=== PATIENT | female | born 1985 | race Caucasian/White ===

== ENCOUNTER 2020-06-23 11:07 | Outpatient (CLI) | payer MEDICARE, MEDICAID, SELFPAY ==
[2020-06-23 11:34] LABS: Basophils Absolute Auto 0.1 K/mm3 (0.0-0.1); Basophils Percent Auto 0.7 % (0.2-1.2); Eosinophils Absolute Auto 0.2 K/mm3 (0-0.3); Eosinophils Percent Auto 2.9 % (0-4.4); Hematocrit 42.2 % (37.0-47.0); Immature Granulocyte Absolute 0.02 K/mm3 (0.00-0.031); Immature Granulocyte Percent A 0.3 % (0-0.5); Lymphocytes Absolute Auto 1.24 K/mm3 (0.9-3.2); Lymphocytes Percent Auto 16.5 % (18.3-44.2); Mean Corpuscular HGB Conc 30.8 g/dl (32-36); Mean Corpuscular Hemoglobin 26.3 pg (26-34); Mean Corpuscular Volume 85.4 fl (80-100); Mean Platelet Volume 10.3 fl (7.4-10.4); Monocytes Absolute Auto 0.2 K/mm3 (0.1-0.6); Monocytes Percent Auto 3.2 % (2.6-8.5); Neutrophils Absolute Auto 5.7 K/mm3 (1.3-6.7); Neutrophils Percent Auto 76.4 % (45.5-73.1); Platelet Count Result 299 k/mm3 (150-375); Red Blood Count 4.94 M/mm3 (4.2-5.4); Red Cell Distribution Width 14.6 % (11.5-14.5); White Blood Count 7.5 K/mm3 (4.5-10.0)
[2020-06-23 16:32] LABS: Alanine Aminotransferase 26 U/L (4-35); Albumin Level 4.1 g/dL (3.5-5.1); Alkaline Phosphatase 90 U/L (38-126); Anion Gap 7 mmol/L (8-16); Aspartate Amino Transferase 24 U/L (14-36); Bilirubin,Total 0.5 mg/dL (0.2-1.3); Blood Urea Nitrogen 15 mg/dL (7-17); Calcium 9.5 mg/dL (8.4-10.2); Carbon Dioxide 35 mmol/L (22-30); Chloride 98 mmol/L (98-107); Cholesterol 209 mg/dL (0-200); Estimated Glomerular Filt Rate > 60; Glucose 94 mg/dL (65-105); HDL Direct 70 mg/dL; Potassium 4.9 mmol/L (3.4-5.0); Sodium 140 mmol/L (137-145); Triglycerides 96 mg/dL (<150)
[2020-06-23 16:35] LABS: Iron 42 ug/dL (37-170)
[2020-06-23 16:43] LABS: LDL Cholesterol Direct 128 mg/dL
[2020-06-23 16:47] LABS: Percent Iron Saturation 12 % (20-50)
[2020-06-23 16:48] LABS: Vitamin D 25 Hydroxy 16.2 ng/mL
[2020-06-23 16:57] LABS: Hemoglobin A1C 5.2 % (<5.7)
[2020-06-23 17:48] LABS: Folic Acid 6.9 ng/mL (2.76->20)
== END 2020-06-23 11:08 | disposition home or self-care (01) ==
LOC: ANHLAB 11:09
PROVIDERS: PCP Family Medicine; Visit Provider Internal Medicine Hematology & Oncology
DX: D50.9 Iron deficiency anemia, unspecified (principal); R63.5 Abnormal weight gain; R73.9 Hyperglycemia, unspecified; E55.9 Vitamin D deficiency, unspecified; Z79.899 Other long term (current) drug therapy; Z13.220 Encounter for screening for lipoid disorders; Z13.1 Encounter for screening for diabetes mellitus
CPT/HCPCS: 36415; 80053; 80061; 82306; 82607; 82728; 82746; 83036; 83540; 83550; 84443; 85025

== ENCOUNTER 2021-04-06 16:44 | Outpatient (CLI) | payer MEDICARE, MEDICAID, SELFPAY ==
--- NOTE | ~2021-04-06 | CT_ITS ---
EXAMINATION: CT lumbar spine wo con DATE: 04/06/2021 17:51 INDICATION: Spina bifida. Left leg pain. TECHNIQUE: Computed tomography (CT) of the lumbar spine was performed without intravenous contrast. A utomated exposure control and iterative reconstruction technique were employed. The dose-length produ ct was 1053.12 mGy-cm. COMPARISON: CT lumbar spine 08/01/2018 FINDINGS: There is a 2 mm stone in left kidney. Partially visualized is a ventriculoperitoneal shunt. There is 9 degrees dextrocurvature of thoracolumbar spine. There is hyperlordosis of lumbar spine. T here is dysraphism from L3 to L5. There is continuity of the thecal sac with a skin defect in this ar ea. There are dystrophic calcifications around the thecal sac in this area. Osseous central spinal ca nal is developmentally small from T11 to L3. There is ossification of posterior longitudinal ligament at T12 and L1. There is mild chronic anterior wedging of T11 and T12 vertebral bodies. There is mode rately decreased disc height at T11-T12 with endplate remodeling. The following disc levels are speci fically discussed: L1-L2: The disc does not extend beyond the endplate margins. There is moderate right and mild left fa cet joint osteoarthritis. There is moderate right and mild left neural foraminal stenosis. There is m ild central canal stenosis. L2-L3: The disc does not extend beyond the endplate margin. There is severe bilateral facet joint ost eoarthritis. There is moderate right and mild left neural foraminal stenosis. There is mild central c anal stenosis. L3-L4: The disc is bulging. There is severe bilateral facet joint osteoarthritis. There is moderate b ilateral neural foraminal stenosis. There is mild central canal stenosis with posterior decompression . L4-L5: The disc is bulging. There is severe bilateral facet joint osteoarthritis. There is moderate b ilateral neural foraminal stenosis. There is no central canal stenosis. L5-S1: The disc does not extend beyond the endplate margin. There is no facet joint hypertrophy. Ther e is no neural foraminal stenosis. There is no central canal stenosis. IMPRESSION: 1. 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 2. Moderate lumbar spondylosis, stable from 08/01/18. Reviewed, dictated and finalized at location A.
== END 2021-04-06 16:45 | disposition home or self-care (01) ==
LOC: ANHIMG 16:48
PROVIDERS: PCP Family Medicine; Visit Provider Family Medicine
DX: Q05.9 Spina bifida, unspecified (principal); M47.896 Other spondylosis, lumbar region
CPT/HCPCS: 72131

== ENCOUNTER 2021-11-04 10:32 | Outpatient (CLI) | payer MEDICARE, MEDICAID, SELFPAY ==
--- NOTE | ~2021-11-04 | CT_ITS ---
EXAMINATION: CT abdomen pelvis wo con EXAM DATE: 11/04/2021 11:21 INDICATION: Abdominal pain. Dark urine for one month TECHNIQUE: Spiral CT of the abdomen and pelvis was performed without contrast. Axial, coronal and s agittal images of the abdomen and pelvis were reviewed. The dose-length product (DLP) for this [facility] was 1084.61 mGy-cm. The exposure was tailored according to patient size (auto mA exposure con trol), and iterative reconstruction (ASIR) was used as additional dose reduction technique. There is no prior study for comparison. FINDINGS: There appears to be approximately 30 cm length of catheter or tubing in the pelvis, discont inuous with what appears to be the lower part of a ventriculoperitoneal shunt with its tip below the left hemidiaphragm. The liver, spleen, adrenal glands and pancreas are unremarkable. Gallbladder not identified, patient likely has had cholecystectomy. Several punctate bilateral calyceal stones in each kidney. No urete ral stones or obstructive hydrocephalus. Probable bilateral renal small centrally located cysts. The uterus is unremarkable. The bladder is unremarkable. There is no retroperitoneal or pelvic lymphad enopathy. There are no findings to suggest appendicitis. There is a large gastroesophageal hiatal hernia. Karina cent multisegmental right lower lobe atelectasis. There is moderate amount of colonic stool. No fr ee intraperitoneal gas. The heart is normal in size. There are no pericardial or pleural effusions . There are no osteoblastic or osteolytic lesions identified. IMPRESSION: 1. Retained catheter fragment the pelvis discontinuous with the other portion of a ventriculoperiton eal shunt. 2. Punctate bilateral nephrolithiasis. No hydronephrosis. 3. Large gastroesophageal hiatal hernia. 4. Moderate colonic stool. Reviewed, dictated and finalized at location B. SOLUTION ARCHITECT IMPRESSION: 1. Retained catheter fragment the pelvis discontinuous with the other portion of a ventriculoperitoneal shunt. 2. Punctate bilateral nephrolithiasis. No hydronephrosis. 3. Large gastroesophageal hiatal hernia. 4. Moderate colonic stool.
== END 2021-11-04 10:33 | disposition home or self-care (01) ==
LOC: ANHIMG 10:34
PROVIDERS: PCP Family Medicine; Visit Provider Family Medicine
DX: R10.9 Unspecified abdominal pain (principal); N20.0 Calculus of kidney; K44.9 Diaphragmatic hernia without obstruction or gangrene
CPT/HCPCS: 74176; 96372; J3420

== ENCOUNTER 2021-12-28 14:33 | Outpatient (CLI) | payer MEDICARE, MEDICAID, SELFPAY ==
[2021-12-28 15:36] LABS: Cholesterol 199 mg/dL (0-200); HDL Direct 56 mg/dL; Triglycerides 104 mg/dL (<150)
[2021-12-28 15:39] LABS: Hemoglobin A1C 4.9 % (<5.7)
[2021-12-28 15:47] LABS: LDL Cholesterol Direct 95 mg/dL
[2021-12-28 17:21] LABS: Vitamin D 25 Hydroxy 25.7 ng/mL
== END 2021-12-28 14:34 | disposition home or self-care (01) ==
LOC: ANHLAB 14:35
PROVIDERS: PCP Family Medicine; Visit Provider Internal Medicine Hematology & Oncology
DX: E55.9 Vitamin D deficiency, unspecified (principal); Z13.228 Encounter for screening for other metabolic disorders; Z13.220 Encounter for screening for lipoid disorders; Z13.1 Encounter for screening for diabetes mellitus
CPT/HCPCS: 36415; 80061; 82306; 83036; 84443

== ENCOUNTER 2023-05-17 11:34 | Outpatient (CLI) | payer MEDICARE, MEDICAID, SELFPAY ==
[2023-05-17 12:20] LABS: Basophils Percent Auto 0.4 % (0.2-1.2); Eosinophils Absolute Auto 0.2 K/mm3 (0-0.3); Hematocrit 38.5 % (37.0-47.0); Hemoglobin 12.3 g/dL (12.0-15.0); Immature Granulocyte Absolute 0.03 K/mm3 (0.00-0.031); Immature Granulocyte Percent A 0.3 % (0-0.5); Lymphocytes Absolute Auto 1.35 K/mm3 (0.9-3.2); Lymphocytes Percent Auto 15.2 % (18.3-44.2); Mean Corpuscular HGB Conc 31.9 g/dl (32-36); Mean Corpuscular Hemoglobin 27.7 pg (26-34); Mean Corpuscular Volume 86.7 fl (80-100); Mean Platelet Volume 9.9 fl (7.4-10.4); Monocytes Absolute Auto 0.4 K/mm3 (0.1-0.6); Monocytes Percent Auto 4.4 % (2.6-8.5); Neutrophils Absolute Auto 6.9 K/mm3 (1.3-6.7); Neutrophils Percent Auto 77.7 % (45.5-73.1); Platelet Count Result 305 k/mm3 (150-375); Red Blood Count 4.44 M/mm3 (4.2-5.4); Red Cell Distribution Width 12.7 % (11.5-14.5); White Blood Count 8.9 K/mm3 (4.5-10.0)
[2023-05-17 16:59] LABS: LDL Cholesterol Direct 104 mg/dL
[2023-05-17 17:10] LABS: Alanine Aminotransferase 40 U/L (6-35); Alkaline Phosphatase 101 U/L (38-126); Anion Gap 8 mmol/L (8-16); Aspartate Amino Transferase 36 U/L (14-36); Bilirubin,Total 0.6 mg/dL (0.2-1.3); Blood Urea Nitrogen 10 mg/dL (7-17); Carbon Dioxide 30 mmol/L (22-30); Chloride 99 mmol/L (98-107); Cholesterol 167 mg/dL (0-200); Estimated Glomerular Filt Rate > 60; Glucose 95 mg/dL (65-110); HDL Direct 41 mg/dL; Potassium 3.8 mmol/L (3.4-5.0); Sodium 137 mmol/L (137-145); Triglycerides 60 mg/dL (<150)
[2023-05-17 17:18] LABS: Thyroid Stimulating Hormone 0.897 uIU/mL (0.465-4.680)
[2023-05-17 17:22] LABS: Vitamin D 25 Hydroxy < 12.8 ng/mL
== END 2023-05-17 11:35 | disposition home or self-care (01) ==
LOC: ANHLAB 11:37
PROVIDERS: PCP Family Medicine; Visit Provider Internal Medicine Hematology & Oncology
DX: E55.9 Vitamin D deficiency, unspecified (principal); Z13.220 Encounter for screening for lipoid disorders; Z13.1 Encounter for screening for diabetes mellitus; Z79.899 Other long term (current) drug therapy
CPT/HCPCS: 36415; 80048; 80061; 80076; 82306; 84443; 85025

== ENCOUNTER 2023-08-23 08:27 | Emergency (ER) | payer MEDICARE, MEDICAID, SELFPAY ==
--- NOTE | ~2023-08-23 | XR_ITS ---
EXAMINATION: XR chest 2V 08/23/2023 09:09 INDICATION: Midline chest pain. Reflux. PROCEDURE: 2 view chest COMPARISON: 02/16/2009 FINDINGS: The lungs are clear. There is a large hiatal hernia. There is accentuated thoracic kyphosis . There is a right-sided thoracic catheter, likely ventriculoperitoneal shunt. The cardiomediastinal silhouette is within normal limits. There are no pleural effusions. There is no pneumothorax suspec david. IMPRESSION: 1: NO ACUTE CARDIOPULMONARY DISEASE. 2: Large hiatal hernia. Reviewed, dictated and finalized at location L. 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
--- NOTE | 2023-08-23 08:30 | ECG_ITS ---
Measurements Intervals [place] Rate: 114 P: 36 TX: 163 QRS: 44 QRSD: 79 T: 38 QT: 311 QTc: 429 Interpretive Statements SINUS TACHYCARDIA BASELINE ARTIFACT- I, II, AVR ABNORMAL ECG NO PREVIOUS ECG AVAILABLE FOR COMPARISON Electronically Signed On 08-23-2023 9:01:47 FLOOR CARE TECHNICIAN by Spencer Suarez D.O.
[2023-08-23 08:32] VITALS: BP 141/83; PULSE 114; RESP 18; TEMP 36.2; O2SAT 98
[2023-08-23 08:49] LABS: Basophils Absolute Auto 0.1 K/mm3 (0.0-0.1); Basophils Percent Auto 0.6 % (0.2-1.2); Eosinophils Percent Auto 0.3 % (0-4.4); Hematocrit 39.2 % (37.0-47.0); Hemoglobin 11.6 g/dL (12.0-15.0); Immature Granulocyte Absolute 0.05 K/mm3 (0.00-0.031); Immature Granulocyte Percent A 0.4 % (0-0.5); Lymphocytes Absolute Auto 1.04 K/mm3 (0.9-3.2); Lymphocytes Percent Auto 8.9 % (18.3-44.2); Mean Corpuscular HGB Conc 29.6 g/dl (32-36); Mean Platelet Volume 9.3 fl (7.4-10.4); Monocytes Absolute Auto 0.6 K/mm3 (0.1-0.6); Monocytes Percent Auto 4.7 % (2.6-8.5); Neutrophils Absolute Auto 9.9 K/mm3 (1.3-6.7); Neutrophils Percent Auto 85.1 % (45.5-73.1); Platelet Count Result 432 k/mm3 (150-375); Red Blood Count 4.84 M/mm3 (4.2-5.4); Red Cell Distribution Width 15.2 % (11.5-14.5); White Blood Count 11.6 K/mm3 (4.5-10.0)
[2023-08-23 09:02] LABS: Alanine Aminotransferase 21 U/L (6-35); Albumin Level 3.7 g/dL (3.5-5.1); Alkaline Phosphatase 98 U/L (38-126); Anion Gap 7 mmol/L (8-16); Aspartate Amino Transferase 21 U/L (14-36); Bilirubin,Total 0.6 mg/dL (0.2-1.3); Blood Urea Nitrogen 15 mg/dL (7-17); Carbon Dioxide 29 mmol/L (22-30); Chloride 102 mmol/L (98-107); Estimated Glomerular Filt Rate > 60; Glucose 158 mg/dL (65-110); Lipase 78 U/L (23-300); Lipase 80 U/L (23-300); Potassium 3.5 mmol/L (3.4-5.0); Sodium 138 mmol/L (137-145)
[2023-08-23 09:07] LABS: INR 1.1; Prothrombin Time 14.4 Seconds (11.1-14.7)
[2023-08-23 09:08] LABS: Partial Thromboplastin Time 40.8 SECONDS (22.3-36.8)
[2023-08-23 09:13] LABS: Troponin I < 0.012 ng/mL (0.000-0.034)
[2023-08-23 11:05] VITALS: BP 124/75; PULSE 99; RESP 15; O2SAT 100
[2023-08-23] MEDS: BELLADONNA ALK/PHENOB ELIX 10 ML, MAG HYDROX/ALUMINUM HYD/SIMETH 30 ML, LIDOCAINE HCL 2... PO (11:31)
[2023-08-23 11:46] LABS: Troponin I < 0.012 ng/mL (0.000-0.034)
[2023-08-23 12:00] VITALS: BP 124/75; PULSE 96; RESP 16; O2SAT 100
--- NOTE | 2023-08-23 12:24 | ED.CHESTPAIN ---
HPI - Chest Pain General Chief Complaint: Chest Pain Stated Complaint: gerd Time Seen by Provider: 08/23/23 10:32 History of Present Illness HPI narrative: 37-year-old female with history of spina bifida present in the emergency department for evaluation of increased epigastric pain. Patient reports symptoms have been worsening over the last few days. Patient states symptoms worsened when she lays down at night. Patient does take pantoprazole daily. Patient does not have a GI physician and has not recently been scoped. Related Data Home Medications Medication Instructions Recorded Confirmed pantoprazole 40 mg tablet,delayed 40 mg PO QPM 07/11/19 08/10/23 release mirabegron 50 mg tablet,extended 50 mg PO DAILY 03/19/20 08/10/23 release 24 hr (Myrbetriq) ergocalciferol (vitamin D2) 25,000 50,000 unit PO WEEKLY 06/15/23 08/10/23 unit capsule Allergies Allergy/AdvReac Type Severity Reaction Status Date / Time amoxicillin Allergy Mild Rash Verified 08/10/23 10:43 latex Allergy Unknown Swelling Verified 08/10/23 10:43 Review of Systems Review of Systems: All systems reviewed & are unremarkable except as noted in HPI and below PMFSH Family History Family History (Updated 05/23/14 @ 07:13 by DOCTOR UNKNOWN) Mother Depression Family history of multiple sclerosis Other Family history of malignant neoplasm Social History Social History Smoking status: Never smoker Alcohol intake: current Exam Narrative: APPEARANCE: Well appearing, no pain, no distress, well-nourished. HEAD: normocephalic, atraumatic. EYES: PERRLA/EOMI, conjunctivae clear. NOSE: Normal no drainage EARS:TMS clear with good light reflex. THROAT: Pharynx clear, no exudate. NECK: Supple. No adenopathy, no masses. RESPIRATORY: Airway patent, respirations nonlabored. Clear to auscultation bilaterally, no rales, rhonchi, wheezing. CARDIOVASCULAR: Regular rate and rhythm without murmurs rubs or gallops. ABDOMINAL: Epigastric tenderness to palpation MUSCULOSKELETAL: Moves all extremities. Strength/ROM intact, No edema, No calf tenderness. NEURO: Alert. Cranial nerves II through XII intact. Good gait. Good coordination SKIN: Warm, dry. Normal Color PSYCHIATRIC: Normal affect/mood. Course Course Emergency Course: 29-year-old female with history of spina bifida and gastric reflux presenting ED for evaluation of worsening epigastric pain. Patient reports that her symptoms were improved with the GI cocktail. Patient was updated on diet and behavior modification along with the importance of follow-up with GI. Patient was also advised to continue taking her pantoprazole but also to add Maalox. All questions concerns were addressed and patient was well-appearing at time of discharge. Vital Signs Vital signs: Vital Signs Temperature 97.1 F L 08/23/23 08:32 Pulse Rate 114 H 08/23/23 08:32 Respiratory Rate 18 08/23/23 08:32 Blood Pressure 141/83 H 08/23/23 08:32 Pulse Oximetry 98 08/23/23 08:32 Oxygen Delivery Room Air 08/23/23 08:32 Temperature 97.8 F 08/23/23 12:32 Pulse Rate 96 08/23/23 12:00 Respiratory Rate 16 08/23/23 12:00 Blood Pressure 124/75 08/23/23 12:00 Pulse Oximetry 100 08/23/23 12:00 Oxygen Delivery Room Air 08/23/23 08:32 MDM - Chest Pain Lab Data 08/23/23 08:42 08/23/23 08:42 Labs: Lab Results 08/23/23 08/23/23 08/23/23 Range/Units 08:42 08:42 11:14 WBC 11.6 H (4.5-10.0) K/mm3 RBC 4.84 (4.2-5.4) M/mm3 Hgb 11.6 L (12.0-15.0) g/dL Hct 39.2 (37.0-47.0) % MCV 81.0 (80-100) fl MCH 24.0 L (26-34) pg MCHC 29.6 L (32-36) g/dl RDW 15.2 H (11.5-14.5) % Plt Count 432 H (150-375) k/mm3 MPV 9.3 (7.4-10.4) fl Immature Gran % (Auto) 0.4 (0-0.5) % Neut % (Auto) 85.1 H (45.5-73.1) % Lymph % (Auto) 8.9 L (18.3-44.2) % [place] % (Auto) 4.7 (2.6-8.5) % Eos % (Auto) 0.
[2023-08-23 12:32] VITALS: TEMP 36.6
== END 2023-08-23 12:33 | disposition home or self-care (01) ==
PROVIDERS: Emergency Provider Emergency Medicine; PCP Family Medicine
DX: K29.70 Gastritis, unspecified, without bleeding (principal)
CPT/HCPCS: 36415; 71046; 80053; 83690; 84484; 85025; 85610; 85730; 93005; 99284; A9270

== ENCOUNTER 2023-09-14 03:42 | Day surgery (SDC) | payer MEDICARE, MEDICAID, SELFPAY ==
[2023-08-31 10:46] VITALS: BMI 26.6
--- NOTE | 2023-09-12 08:50 | SUR.PREOP ---
Patient called regarding upcoming procedure. Reviewed preop instructions, appointment times, and procedure prep.
--- NOTE | 2023-09-12 13:48 | PM.HPGS ---
History of Present Illness History of Present Illness Consent: Risks, benefits, and alternatives have been discussed and questions answered. Patient agrees to proceed with procedure. Chief complaint: GERD Narrative: Karely Causey is a 38 year old female who was referred for investigation of reflux and a large hiatal hernia. She was in the emergency room complaining of chest pain but she was found to have a large hiatal hernia on imaging. She had a hemoglobin of 11.6. MCV is 81. Her last colonoscopy was 6 years ago revealed internal Hemorrhoids. Review of Systems Review of Systems: All systems reviewed & are unremarkable except as noted in HPI and below PMFSH Past Medical History Medical History Anxiety Depression PAYAL (obstructive sleep apnea) Spina bifida Surgical History Surgical History History of cholecystectomy Family History Family History Mother Depression Family history of multiple sclerosis Other Family history of malignant neoplasm Social History Social History Smoking status: Never smoker Alcohol intake: current Substance use type: does not use Living arrangements: with family Spiritual care concerns: No Meds Home Medications and Allergies Home Medications Medication Instructions Recorded Confirmed Type pantoprazole 40 mg tablet,delayed 40 mg PO QPM 07/11/19 08/31/23 History release mirabegron 50 mg tablet,extended 50 mg PO DAILY 03/19/20 08/31/23 History release 24 hr (Myrbetriq) ergocalciferol (vitamin D2) 25,000 50,000 unit PO WEEKLY 06/15/23 08/31/23 History unit capsule Allergies Allergy/AdvReac Type Severity Reaction Status Date / Time amoxicillin Allergy Mild Rash Verified 08/10/23 10:43 latex Allergy Unknown Swelling Verified 08/10/23 10:43 Exam Const: General: alert Orientation/consciousness: patient oriented x3 Resp: Auscultation: clear to auscultation bilaterally Cardio: Rhythm: regular rhythm GI: GI Palp: Yes Soft to palpation and No Tenderness to palpation present (GI) Neuro: General: patient oriented x3 Assessment and Plan Assessment and plan (1) Hiatal hernia: Code(s): K44.9 - Diaphragmatic hernia without obstruction or gangrene Status: Acute Assessment and Plan: EGD with possible biopsy or dilatation or cautery.
[2023-09-14 13:21] VITALS: BP 112/75; PULSE 111; RESP 20; TEMP 36.6; O2SAT 98; BMI 27.1
--- NOTE | 2023-09-14 13:30 | P.PNAN_ITS ---
Anes - Initial Pre Proc Eval Procedure: Operation Date: 09/14/23 14:30 Proposed Procedures p Esophagogastroduodenoscopy - Pancho Israel MD Date/Time: 09/14/23 13:30 Surgeon: Pancho Israel MD Pre Op Diagnosis: GERD Patient Data Age: 38 Gender: F Height: 1.5 m Weight: 60 kg Allergies Allergy/AdvReac Type Severity Reaction Status Date / Time amoxicillin Allergy Mild Rash Verified 08/10/23 10:43 latex Allergy Unknown Swelling Verified 08/10/23 10:43 Home Medications Medication Instructions Recorded Confirmed Type pantoprazole 40 mg tablet,delayed 40 mg PO QPM 07/11/19 08/31/23 History release mirabegron 50 mg tablet,extended 50 mg PO DAILY 03/19/20 08/31/23 History release 24 hr (Myrbetriq) ergocalciferol (vitamin D2) 25,000 50,000 unit PO WEEKLY 06/15/23 08/31/23 History unit capsule Patient hx anesthesia problems: none Family hx anesthesia problems: none Results Review: All pre-operative results and documents have been reviewed as part of the pre- operative evaluation. [facility] Past Medical History Medical History (Updated 09/14/23 @ 13:31 by Lucas Corona DO) Anxiety Depression PAYAL (obstructive sleep apnea) Spina bifida Surgical History Surgical History (Updated 09/14/23 @ 13:31 by Lucas Corona DO) History of cholecystectomy Family History Family History Mother Depression Family history of multiple sclerosis Other Family history of malignant neoplasm Social History Social History Smoking status: Never smoker Alcohol intake: current Substance use type: does not use Living arrangements: with family Spiritual care concerns: No Anes - Eval Final PreProcedure Day of Procedure 09/14/23 13:30 Patient weight: overweight Heart: regular rate and rhythm Lungs: clear to auscultation Airway: Mallampati scale class II Neurological: alert and oriented Last oral intake: >/= 8 hours ASA classification: III Emergent: no Anesthetic plan: proceed Anesthesia type and monitoring: general GIVS and standard monitoring Results Review: All pre-operative results and documents have been reviewed as part of the pre- operative evaluation. Informed Consent: The patient's anesthetic plan and its attendant risks and benefits were discussed with the patient/family/POA. Questions were solicited and answers provided to the satisfaction of the patient/family/POA.
--- NOTE | 2023-09-14 13:44 | SUR.PREOP ---
Elliott Barr gave order to hold urine test due to pt. condition and self cath. Pt. states there is no way possible that she is .
[2023-09-14] MEDS: LACTATED RINGERS 1,000 ML 150 ML IV CONT (13:54)
[2023-09-14 14:06] VITALS: BP 111/71; PULSE 90; RESP 13; O2SAT 92
[2023-09-14 14:16] VITALS: BP 106/72; PULSE 93; RESP 19; O2SAT 93
[2023-09-14 14:26] VITALS: BP 97/63; PULSE 92; RESP 19; O2SAT 94
== END 2023-09-14 14:46 | disposition home or self-care (01) ==
PROVIDERS: PCP Family Medicine; Visit Provider Internal Medicine Gastroenterology
PROC: 0DJ08ZZ Inspection of Upper Intestinal Tract, Via Natural or Artificial Opening Endoscopic (ICD-10-PCS; CPT 43235; principal; 2023-09-14 14:30)
DX: K21.00 Gastro-esophageal reflux disease with esophagitis, without bleeding (principal); K44.9 Diaphragmatic hernia without obstruction or gangrene; K31.89 Other diseases of stomach and duodenum; Q05.9 Spina bifida, unspecified; G47.33 Obstructive sleep apnea (adult) (pediatric)
CPT/HCPCS: 43239; 88305; 88313; J2704; J7120

== ENCOUNTER 2023-10-25 11:25 | Inpatient (IN) | payer MEDICARE, MEDICAID, SELFPAY ==
--- NOTE | ~2023-10-25 | CT_ITS ---
EXAMINATION: CT pelvis wo/w con DATE: 10/26/2023 09:53 INDICATION: Peritoneal masses. TECHNIQUE: Computed tomography (CT) of the pelvis was performed without and with 100 mL Omnipaque 350 intravenous contrast. Automated exposure control and iterative reconstruction technique were employe d. The dose-length product was 623.49 mGy-cm. COMPARISON: Pelvis CT 10/25/23, 11/04/21 FINDINGS: There are cysts in left kidney measuring up to 12 mm. There is a ventriculoperitoneal shunt . A retained peritoneal catheter fragment is also noted. The rectum is distended. There is a large vo lume of stool in the colon. There are multiple contiguous masses in the pelvis around the uterus chelsey uring soft tissue attenuation measuring 11.6 x 8.6 cm. The masses measure 13 HU higher on postcontras t images, which is indeterminate for contrast enhancement. 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 There is waist presser julieta soft tissue attenuation overlying the sacrum, consistent with inflammation/scarring. There is no evidence of osteomyelitis. There is moderate lumbar spondylosis. IMPRESSION: 1. No evidence of osteomyelitis. 2. Multiple contiguous masses in the pelvis around the uterus that are indeterminate for contrast enh ancement, new from 11/04/2021. These findings may be peritoneal inclusion cysts or less likely malignan cy. CT-guided biopsy is recommended. Reviewed, dictated and finalized at location A. TED POLICE OFFICER IMPRESSION: 1. No evidence of osteomyelitis. 2. Multiple contiguous masses in the pelvis around the uterus that are indeterm inate for contrast enhancement, new from 11/04/2021. These findings may be perito tomasz inclusion cysts or less likely malignancy. CT-guided biopsy is recommended .
--- NOTE | ~2023-10-25 | CT_ITS ---
EXAMINATION: CT pelvis w con DATE: 10/25/2023 14:16 INDICATION: Lumbar sacral ulcer. TECHNIQUE: Computed tomography (CT) of the pelvis was performed with 100 mL Omnipaque 350 intravenous contrast. Automated exposure control and iterative reconstruction technique were employed. The dose- length product was 531.25 mGy-cm. COMPARISON: CT 11/04/2021 FINDINGS: There is cortical thinning of the kidneys. There are cysts in the kidneys measuring up to 2 .0 cm on the right. There is a ventriculoperitoneal shunt. The rectum is distended. There is a large volume of stool in the colon. There are multiple contiguous masses in the pelvis around the uterus me asuring soft tissue attenuation measuring 11.6 x 8.6 cm. 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 There is chroni c soft tissue attenuation overlying the sacrum, consistent with inflammation/scarring. There is no ev idence of osteomyelitis. There is moderate lumbar spondylosis. IMPRESSION: 1. No evidence of osteomyelitis. 2. Multiple contiguous masses in the pelvis around the uterus, new from 11/04/2021. These findings may be peritoneal inclusion cysts or less likely malignancy. Pelvis CT or MRI without and with contrast i s recommended. Reviewed, dictated and finalized at location A. STFEEDING PEER COUNSELOR IMPRESSION: 1. No evidence of osteomyelitis. 2. Multiple contiguous masses in the pelvis around the uterus, new from 2. These findings may be peritoneal inclusion cysts or less likely malignancy. Pelvis CT or MRI without and with contrast is recommended.
[2023-10-25 11:45] VITALS: BP 129/75; PULSE 102; RESP 20; TEMP 37.1; O2SAT 96
--- NOTE | 2023-10-25 12:46 | ED.GENADULT ---
HPI - General Adult General Chief complaint: Wound/Laceration Stated complaint: wound on tailbone Time Seen by Provider: 10/25/23 11:57 History of Present Illness HPI narrative: 38-year-old female with history of spina bifida presenting to the emergency department for evaluation for an ulcer on her sacral spine. Patient states she has had previous history of infection that was able to be taken care of using antibiotic ointment. Patient states she has had some foul order for last few days. Patient had her home health nurse evaluate the wound and patient was deferred to the emergency department for evaluation. Related Data Home Medications Medication Instructions Recorded Confirmed pantoprazole 40 mg tablet,delayed 40 mg PO QPM 07/11/19 10/04/23 release mirabegron 50 mg tablet,extended 50 mg PO DAILY 03/19/20 10/04/23 release 24 hr (Myrbetriq) ergocalciferol (vitamin D2) 25,000 50,000 unit PO WEEKLY 06/15/23 10/04/23 unit capsule Allergies Allergy/AdvReac Type Severity Reaction Status Date / Time amoxicillin Allergy Mild Rash Verified 10/25/23 12:07 latex Allergy Unknown Swelling Verified 10/25/23 12:07 Review of Systems Review of Systems: All systems reviewed & are unremarkable except as noted in HPI and below PMFSH Past Medical History Medical History Anxiety Depression Iron deficiency anemia Obstructive sleep apnea Spina bifida Vitamin B12 deficiency Surgical History Surgical History History of back surgery History of cholecystectomy History of creation of ventriculoperitoneal shunt History of endoscopy History of esophagogastroduodenoscopy (08/2023) Reflux esophagitis. Hiatal hernia. Family History Family History Mother Depression Family history of multiple sclerosis Other Family history of malignant neoplasm Social History Social History Social History: Surrogate medical decision maker: Kendal Causey, mother. Code status: Full code. Smoking status: Never smoker Alcohol intake: current Substance use type: does not use Living arrangements: with family Additional living arrangements comments: Lives in [place]. 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 Spiritual care concerns: No Exam Narrative: APPEARANCE: Well appearing, no pain, no distress, well-nourished. HEAD: normocephalic, atraumatic. EYES: PERRLA/EOMI, conjunctivae clear. NOSE: Normal no drainage EARS:TMS clear with good light reflex. THROAT: Pharynx clear, no exudate. NECK: Supple. No adenopathy, no masses. RESPIRATORY: Airway patent, respirations nonlabored. Clear to auscultation bilaterally, no rales, rhonchi, wheezing. CARDIOVASCULAR: Regular rate and rhythm without murmurs rubs or gallops. ABDOMINAL: Soft, nontender, nondistended, normal bowel sounds MUSCULOSKELETAL: Moves all extremities. Strength/ROM intact, No edema, No calf tenderness. NEURO: Alert. Cranial nerves II through XII intact. Good gait. Good coordination SKIN: Area of necrotic skin overlying the sacrum Course Course Emergency Course: 38-year-old female presenting emergency department for worsening sacral wound. Patient is afebrile with no leukocytosis and a stable hemoglobin no acute abnormalities on the CMP. CT showed no evidence of osteomyelitis. Patient was started on Flagyl and Levaquin due to her underlying medication allergies. Patient was admitted to the hospitalist and surgery was consulted. Patient was updated on the results of the workup and plan for admission Vital Signs Vital signs: Vital Signs Temperature 98.8 F 10/25/23 11:45 Pulse Rate 102 H 10/25/23 11:45 Respiratory Rate 20 10/25/23 11:45 Blood Pressure 129/75 10/25/23 11:45 Puls
[2023-10-25 13:17] LABS: Basophils Absolute Auto 0.1 K/mm3 (0.0-0.1); Basophils Percent Auto 0.8 % (0.2-1.2); Eosinophils Absolute Auto 0.2 K/mm3 (0-0.3); Eosinophils Percent Auto 1.6 % (0-4.4); Hematocrit 34.1 % (37.0-47.0); Hemoglobin 9.6 g/dL (12.0-15.0); Immature Granulocyte Absolute 0.03 K/mm3 (0.00-0.031); Immature Granulocyte Percent A 0.3 % (0-0.5); Lymphocytes Absolute Auto 1.22 K/mm3 (0.9-3.2); Lymphocytes Percent Auto 12.8 % (18.3-44.2); Mean Corpuscular HGB Conc 28.2 g/dl (32-36); Mean Corpuscular Hemoglobin 22.3 pg (26-34); Mean Corpuscular Volume 79.1 fl (80-100); Mean Platelet Volume 9.5 fl (7.4-10.4); Monocytes Absolute Auto 0.5 K/mm3 (0.1-0.6); Neutrophils Absolute Auto 7.6 K/mm3 (1.3-6.7); Neutrophils Percent Auto 79.5 % (45.5-73.1); Platelet Count Result 480 k/mm3 (150-375); Red Blood Count 4.31 M/mm3 (4.2-5.4); Red Cell Distribution Width 16.1 % (11.5-14.5); White Blood Count 9.6 K/mm3 (4.5-10.0)
[2023-10-25] MEDS: metroNIDAZOLE 500 MG/ISO 100ML 500 MG/100 ML BAG 100 MG IVPB ×2 (13:18→22:08)
[2023-10-25] MEDS: levoFLOXacin 750 MG/D5W 150 ML 750 MG/150 ML BAG 100 MG IVPB (13:18)
[2023-10-25 13:28] LABS: INR 1.1; Prothrombin Time 14.2 Seconds (11.1-14.7)
[2023-10-25 13:29] LABS: Partial Thromboplastin Time 41.9 SECONDS (22.3-36.8)
[2023-10-25 13:30] LABS: Alanine Aminotransferase 31 U/L (6-35); Albumin Level 3.6 g/dL (3.5-5.1); Alkaline Phosphatase 175 U/L (38-126); Anion Gap 10 mmol/L (8-16); Aspartate Amino Transferase 27 U/L (14-36); Bilirubin,Total 0.9 mg/dL (0.2-1.3); Blood Urea Nitrogen 11 mg/dL (7-17); Calcium 9.5 mg/dL (8.4-10.2); Carbon Dioxide 31 mmol/L (22-30); Chloride 99 mmol/L (98-107); Estimated Glomerular Filt Rate > 60; Glucose 101 mg/dL (65-110); Potassium 3.6 mmol/L (3.4-5.0); Sodium 140 mmol/L (137-145)
[2023-10-25 13:32] LABS: Anisocytosis 1+ (NORMAL); Hypochromasia 1+ (NORMAL); Ovalocytes 1+ (NORMAL); Platelet Estimate Increased (Adequate); Schistocytes None Seen (NORMAL)
[2023-10-25 13:35] LABS: Lactic Acid Reflex 0.9 mmol/L (0.7-2.0)
--- NOTE | 2023-10-25 15:29 | PM.IMHP ---
H&P: HPI History of Present Illness Date/Time: 10/25/23 16:30 Chief Complaint: Wound on tailbone. Narrative: This is a pleasant 38-year-old female with spinal bifida, iron and B12 deficiency, reflux esophagitis, and obstructive sleep apnea who presented to the emergency department for evaluation of a wound on her tailbone. The patient provides the following history. She has a history of wounds in the area which she has been able to manage with [id number] antibiotic ointment. Over last several weeks she has developed some pain in her tailbone and the last couple of days she has noticed a foul older coming from a wound over the sacrum. Today she was at physical therapy in asked her therapist to look at the wound and she was referred to the ED. She is otherwise feeling okay and denies systemic symptoms. She was afebrile on arrival with stable vitals. WBC count was 9.6. CT of the pelvis showed no evidence of osteomyelitis but did note multiple masses in the pelvis around the uterus (new from October 2021) which may be peritoneal inclusion cyst or less likely malignancy. She has been started on antibiotics and is being admitted in this setting for further treatment and surgery consultation. Review of Systems Review of Systems: Twelve systems were reviewed and are negative except for as per HPI. [facility] Past Medical History Medical History Anxiety Depression Iron deficiency anemia Obstructive sleep apnea Spina bifida Vitamin B12 deficiency Surgical History Surgical History History of back surgery History of cholecystectomy History of creation of ventriculoperitoneal shunt History of endoscopy History of esophagogastroduodenoscopy (08/2023) Reflux esophagitis. Hiatal hernia. Family History Family History Mother Depression Family history of multiple sclerosis Other Family history of malignant neoplasm Social History Social History (Updated 10/25/23 @ 23:27 by Cheryl Blanco PA-C) Social History: Surrogate medical decision maker: Kendal Causey, mother. Code status: Full code. Smoking status: Never smoker Alcohol intake: never Substance use: never Substance use type: does not use Do You Feel Safe in your Home?: Yes Lack of Transportation: No Lack of Food: Never True Current Housing: I Have Housing Concerned About Future Housing: No Difficulty Paying Gas/Electric Bills: No Difficulty Paying for Meds: No Currently Unemployed: No Education: Don't Know Difficulty w/ Childcare or Family Care: No Living arrangements: with family Additional living arrangements comments: Lives with mother in [place]. Ambulates with crutches an AFO braces. Electric scooter for long distances. 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 Spiritual care concerns: No Meds Home Medications and Allergies Home Medications Medication Instructions Recorded Confirmed Type pantoprazole 40 mg tablet,delayed 40 mg PO HS 07/11/19 10/25/23 History release mirabegron 50 mg tablet,extended 50 mg PO HS 03/19/20 10/25/23 History release 24 hr (Myrbetriq) Allergies Allergy/AdvReac Type Severity Reaction Status Date / Time amoxicillin Allergy Mild Rash Verified 10/25/23 19:07 latex Allergy Unknown Anaphylaxis Verified 10/25/23 19:07 Vital Signs Vital Signs - 24 hr 10/25/23 11:45 Temperature 98.8 F Pulse Rate 102 H Respiratory Rate 20 Blood Pressure 129/75 Pulse Oximetry 96 Oxygen Delivery Room Air Exam Narrative: General: Well-developed, nontoxic-appearing female sitting up in bed. Weight: 60.4 kg. BMI: 30.5. HEENT: PERRL, EOMI. Sclera anicteric. Oral mucosa moist. Neck: Supple. Respiratory: Lungs are clear to auscultation bilaterally. Cardiovascular
--- NOTE | 2023-10-25 16:16 | PM.CNGS ---
Assessment and Plan Assessment and plan (1) Sacral decubitus ulcer: Code(s): L89.159 - Pressure ulcer of sacral region, unspecified stage Status: Acute Assessment and Plan: Patient presents with an unstageable necrotic sacral ulcer at the lower end of her scarring from previous surgeries for spina bifida. Pelvis CT showed no evidence of osteomyelitis. Considering the location, it would be high risk to proceed with surgical debridement. We will initiate local wound care with Dakin's soaked gauze dressing changes. We will continue to follow along and would recommend a referral to a spina bifida specialist, who we will try to contact while she is admitted. (2) Spina bifida of lumbar spine: Code(s): Q05.7 - Lumbar spina bifida without hydrocephalus Status: Acute (3) Pelvic mass: Code(s): R19.00 - Intra-abdominal and pelvic swelling, mass and lump, unspecified site Status: Acute Assessment and Plan: Incidental finding on pelvis CT, further workup per primary service (4) PAYAL (obstructive sleep apnea): Code(s): G47.33 - Obstructive sleep apnea (adult) (pediatric) Status: Acute (5) Iron deficiency anemia due to chronic blood loss: Code(s): D50.0 - Iron deficiency anemia secondary to blood loss (chronic) Status: Acute (6) Hiatal hernia: Code(s): K44.9 - Diaphragmatic hernia without obstruction or gangrene Status: Acute Assessment and Plan: Patient was recently seen by Dr. Frey in our office on 09/30/23 for GERD and hiatal hernia. Plan was to continue medical treatment and monitor symptoms. Plan I have discussed the patient's case and plan of care with Dr. Frey. Thank you for allowing us to see the patient in consultation and we will continue to follow along with you. History of Present Illness Consult details Consult date: 10/25/23 Reason for consult: other (Sacral wound) Requesting physician: Dave Orosco MD Narrative: This is a 38 year old woman with spina bifida who presented to the ER today with concerns of a sacral wound. She reports over a month ago, she noticed some drainage coming from her sacral area. She reports having green-colored drainage that prompted her to go to her PCP for evaluation. She was told by her PCP that she had an infected wound at her sacral area, and she was given antibiotic ointment to apply to the wound daily. She followed up after about 2 weeks and was told it improved. She thought that this had healed and wasn't noticing the drainage anymore. Over the past few days, she had noticed drainage again from this area, but reports it being bloody drainage. She also began to notice some pain in the sacral area. This was new over the past few days and progressively got worse. She goes to physical therapy twice a week for her spina bifida, which she has done for many years. While she was at therapy today, she had the therapist look at this area since she was in pain and they directed her to the ER. CT scan of the pelvis in the ER showed no evidence of osteomyelitis. Incidentally noted was multiple contiguous masses in the pelvis around the uterus. Our service was consulted for the sacral wound. She reports being very independent at home, although she lives with her mother. She ambulates with crutches and is determined to stay out of a wheelchair. She does report being more sedentary over the past month or so as she has been more tired. She denies ever having a wound in this area in the past. She has had a total of 3 surgeries for her spina bifida in the past, with the last one being around age 10-11. She followed a spina bifida specialist at [facility] up until about age 19. Review of Systems Review of Systems: All systems reviewed & are unremarkable except as noted in HPI and below Constitutional: Constitutional: Reports no additional constitutional complaints, Denies chills, Reports fatigue, Denies fever(s) and Reports leth
--- NOTE | 2023-10-25 16:43 | PC.NURSE ---
Dinner tray ordered for pt
[2023-10-25 17:00] VITALS: BP 130/70; PULSE 80; RESP 20; O2SAT 98
[2023-10-25] MEDS: HYDROmorphone HCL INJ (*CRX) 1 MG/ML SYR 0.5 MG IV PUSH ×2 (18:12→22:14)
[2023-10-25 18:51] VITALS: BMI 30.4
[2023-10-25 18:53] VITALS: BP 123/73; PULSE 113; RESP 18; TEMP 37.3; O2SAT 95
--- NOTE | 2023-10-25 18:58 | ADMGEN ---
This patient, Karely Causey, was admitted to [facility] Room 314-01. Patient/family oriented to hospital policies and general routines including ID bracelet, bed and alarms, visiting hours, pain management, procedures, bathroom and other care routines, personal items, smoking policy, room service/diet, and visiting hours. Information on how to activate the Rapid Response Team has been discussed. Patient/Family are encouraged to report perceived risks to care and to ask questions if they do not understand what they are told or what they should do. Report from Nohemi in ER.
[2023-10-25 22:00] VITALS: BP 117/72; PULSE 102; RESP 18; TEMP 36.7; O2SAT 96
[2023-10-25] MEDS: SOD HYPOCHLORITE 1/4 STRENGTH 473 ML 1 APPLIC TOPICAL (22:34)
[2023-10-25 23:40] LABS: Appearance Urine Cloudy (Clear); Bacteria Urine 1+ /hpf; Bilirubin Urine 1+ (Negative); Blood Urine Negative (Negative); Color Urine Dark Yellow (Yellow); Glucose Urine UA Negative (Negative); Ketones Urine 1+ mg/dL (Negative); Leukocyte Esterase Ur Negative LEU/UL (NEGATIVE); Nitrate Urine Negative (Negative); Non Pathogenic Casts 0-2; Protein Urine Trace mg/dL (Negative); RBC Urine 0-2 /hpf (0-2); Squamous Epithelial Cell Urine Few /hpf (Few); WBC Urine 0-5 /hpf (0-3); pH Urine 6.5 (5.0-9.0)
[2023-10-25 23:54] LABS: Add Urine Microscopic? YES; Specific Grav Ur 1.058 (1.001-1.035)
[2023-10-26] MEDS: metroNIDAZOLE 500 MG/ISO 100ML 500 MG/100 ML BAG 100 MG IVPB ×4 (02:34→23:35)
[2023-10-26 06:00] VITALS: BP 110/71; PULSE 95; RESP 18; TEMP 36.8; O2SAT 95
[2023-10-26 07:20] LABS: Basophils Absolute Auto 0.1 K/mm3 (0.0-0.1); Basophils Percent Auto 0.7 % (0.2-1.2); Eosinophils Absolute Auto 0.1 K/mm3 (0-0.3); Eosinophils Percent Auto 1.6 % (0-4.4); Hematocrit 32.4 % (37.0-47.0); Hemoglobin 9.2 g/dL (12.0-15.0); Immature Granulocyte Absolute 0.03 K/mm3 (0.00-0.031); Immature Granulocyte Percent A 0.4 % (0-0.5); Lymphocytes Absolute Auto 1.06 K/mm3 (0.9-3.2); Lymphocytes Percent Auto 15.6 % (18.3-44.2); Mean Corpuscular HGB Conc 28.4 g/dl (32-36); Mean Corpuscular Hemoglobin 22.6 pg (26-34); Mean Corpuscular Volume 79.6 fl (80-100); Mean Platelet Volume 10.3 fl (7.4-10.4); Monocytes Absolute Auto 0.4 K/mm3 (0.1-0.6); Monocytes Percent Auto 6.5 % (2.6-8.5); Neutrophils Absolute Auto 5.1 K/mm3 (1.3-6.7); Neutrophils Percent Auto 75.2 % (45.5-73.1); Platelet Count Result 451 k/mm3 (150-375); Red Blood Count 4.07 M/mm3 (4.2-5.4); Red Cell Distribution Width 16.4 % (11.5-14.5); White Blood Count 6.8 K/mm3 (4.5-10.0)
[2023-10-26 07:23] LABS: Anion Gap 8 mmol/L (8-16); Blood Urea Nitrogen 6 mg/dL (7-17); Calcium 8.9 mg/dL (8.4-10.2); Carbon Dioxide 28 mmol/L (22-30); Chloride 100 mmol/L (98-107); Estimated Glomerular Filt Rate > 60; Glucose 103 mg/dL (65-110); Magnesium 2.1 mg/dL (1.6-2.3); Potassium 3.4 mmol/L (3.4-5.0); Sodium 136 mmol/L (137-145)
[2023-10-26 09:28] LABS: Anisocytosis 1+ (NORMAL); Hypochromasia 2+ (NORMAL); Platelet Estimate Increased (Adequate); Schistocytes None Seen (NORMAL)
[2023-10-26] MEDS: HYDROmorphone HCL INJ (*CRX) 1 MG/ML SYR 0.5 MG IV PUSH (09:34)
[2023-10-26] MEDS: BISACODYL 5 MG TABLET EC PO (10:30)
[2023-10-26] MEDS: SOD HYPOCHLORITE 1/4 STRENGTH 473 ML 1 APPLIC TOPICAL ×2 (10:31→22:07)
[2023-10-26] MEDS: ENOXAPARIN 40 MG/0.4 ML SYRINGE SUB-Q (10:31)
--- NOTE | 2023-10-26 11:49 | PM.IMPN ---
Subjective Date/time seen: 10/26/23 11:49 Interval history: HPI: 38-year-old female with PMHx: Spinal bifida, iron and B12 deficiency, reflux esophagitis, and obstructive sleep apnea who presented to the emergency department for evaluation of a wound on her tailbone. Patient reported she has a history of wounds, that has been managed by her and PCP with [id number] antibiotic ointment. Ms Causey stated over last several weeks she has developed some pain in her tailbone and the last couple of days she has noticed a foul older coming from a wound over the sacrum. while participating in physical therapy, she requested staff take a look at her wound, she reports that when she was told to go to the ED for further evaluation and treatment. ED workup revealed, she was afebrile with stable vitals. WBC count was 9.6. CT of the pelvis showed no evidence of osteomyelitis but did note multiple masses in the pelvis around the uterus (new from October 2021) which may be peritoneal inclusion cyst or less likely malignancy. She was started on antibiotics, admitted for further treatment and surgery consultation. Assumed care for patient 10/26/2023 Interval history: 10/26/2023. pt seen this a.m, laying in bed, with no overnight c/o, RN and surgery team are by the bedside, new CT results are discussed with patient, plan is to consult with [facility] neurosurgery team for further recommendations, surgical debridement on hold at this moment will continue patient on clear liquid diet. Review of Systems Review of Systems: All systems reviewed & are unremarkable except as noted in HPI and below Exam Narrative: General: Well-developed, nontoxic-appearing female sitting up in bed. Weight: 60.4 kg. BMI: 30.5. HEENT: PERRL, EOMI. Sclera anicteric. Oral mucosa moist. Neck: Supple. Respiratory: Lungs are clear to auscultation bilaterally. Cardiovascular: Regular rate and rhythm with S1-S2. Gastrointestinal: Abdomen is soft, nontender, and nondistended with positive bowel sounds. Skin: all other skin WNL, sacrum. Deep necrotic wound with foul older overlying the sacrum at the lower end of a surgical scar. Extremities: No cyanosis, clubbing, or significant edema. Short lower extremities. Radial and pedal pulses intact. Neurological: Alert. Cranial nerves 2-12 are grossly intact. Decreased sensation from the knees down. No gross focal deficits to casual conversation. Psychiatric: Pleasant and cooperative with normal mood and affect. Judgment and insight intact. Objective Data Vital Signs Vital Signs: Vital Signs - 24 hr 10/25/23 17:00 10/25/23 18:53 10/25/23 22:00 Temperature 99.2 F 98.1 F Pulse Rate 80 113 H 102 H Respiratory Rate 20 18 18 Blood Pressure 130/70 123/73 117/72 Pulse Oximetry 98 95 96 10/26/23 06:00 Temperature 98.3 F Pulse Rate 95 Respiratory Rate 18 Blood Pressure 110/71 Pulse Oximetry 95 Intake/Output Intake/Output: Intake & Output 10/23/23 10/24/23 10/25/23 10/26/23 23:59 23:59 23:59 23:59 Intake Total 350 700 Output Total 200 Balance 150 700 Meds/Results Medications: Active Medications Generic Name Dose Route Start Last Admin Trade Name Freq PRN Reason Stop Dose Admin Bisacodyl 5 mg 10/26/23 09:57 10/26/23 10:30 Bisacodyl 5 Mg Tablet Ec PO 5 mg QAM PRN Administration Constipation Enoxaparin Sodium 40 mg 10/26/23 09:00 10/26/23 10:31 Enoxaparin 40 Mg/0.4 Ml Syringe SUB-Q 40 mg DAILY GOMEZ Administration Hydromorphone HCl 0.5 mg 10/25/23 21:06 10/26/23 09:34 Hydromorphone Hcl Inj (*Crx) 1 Mg/Ml Syr IV PUSH 0.5 mg Q3H PRN Administration Pain Rated 7-10 Levofloxacin/Dextrose 750 mg in 150 mls @ 100 mls/hr 10/26/23 13:00 Levaquin 750 Mg/D5w 150 Ml IVPB Q24H GOMEZ Metronidazole 500 mg in 100 mls @ 100 mls/hr 10/25/23 20:00 10/26/23 09:30 Flagyl 500 Mg/Iso Soln 100 Ml IVPB 100 mls/hr Q6H GOMEZ Administration Mirabegron 50 mg
[2023-10-26 12:56] VITALS: BMI 30.7
[2023-10-26] MEDS: LORazepam (*CRX) 0.5 MG TABLET PO (13:31)
[2023-10-26] MEDS: levoFLOXacin 750 MG/D5W 150 ML 750 MG/150 ML BAG 100 MG IVPB (13:31)
[2023-10-26 14:00] VITALS: BP 111/74; PULSE 104; RESP 18; TEMP 37.4; O2SAT 94
--- NOTE | 2023-10-26 15:02 | PM.PNGS ---
Progress Note: A&P Assessment and Plan (1) Sacral decubitus ulcer: Code(s): L89.159 - Pressure ulcer of sacral region, unspecified stage Status: Acute Assessment and Plan: Continue local wound care. In discussions with [place] neurosurgery due to proximity to myelomeningocele. They are recommending MRI before accepting transfer. Will try to arrange to be done to further assess. (2) Spina bifida of lumbar spine: Code(s): Q05.7 - Lumbar spina bifida without hydrocephalus Status: Acute Subjective Subjective Date/Time Seen: 10/26/23 15:02 Interval history: Patient tearful about needing more testing and possibly needing transfer. Doing well with dressing changes currently. Exam Back/Spine/Pelvis: Other: Necrotic unstageable sacral ulcer, scant serous drainage. Objective Data Vital Signs Vital Signs: Vital Signs - 24 hr 10/25/23 17:00 10/25/23 18:53 10/25/23 22:00 Temperature 37.3 C 36.7 C Pulse Rate 80 113 H 102 H Respiratory Rate 20 18 18 Blood Pressure 130/70 123/73 117/72 Pulse Oximetry 98 95 96 10/26/23 06:00 10/26/23 14:00 Temperature 36.8 C 37.4 C Pulse Rate 95 104 H Respiratory Rate 18 18 Blood Pressure 110/71 111/74 Pulse Oximetry 95 94 Intake/Output Intake/Output: Intake & Output 10/23/23 10/24/23 10/25/23 10/26/23 23:59 23:59 23:59 23:59 Intake Total 350 940 Output Total 200 400 Balance 150 540 Meds/Results Medications: Active Medications Generic Name Dose Route Start Last Admin Trade Name Freq PRN Reason Stop Dose Admin Bisacodyl 5 mg 10/26/23 09:57 10/26/23 10:30 Bisacodyl 5 Mg Tablet Ec PO 5 mg QAM PRN Administration Constipation Enoxaparin Sodium 40 mg 10/26/23 09:00 10/26/23 10:31 Enoxaparin 40 Mg/0.4 Ml Syringe SUB-Q 40 mg DAILY GOMEZ Administration Hydromorphone HCl 0.5 mg 10/25/23 21:06 10/26/23 09:34 Hydromorphone Hcl Inj (*Crx) 1 Mg/Ml Syr IV PUSH 0.5 mg Q3H PRN Administration Pain Rated 7-10 Levofloxacin/Dextrose 750 mg in 150 mls @ 100 mls/hr 10/26/23 13:00 10/26/23 13:31 Levaquin 750 Mg/D5w 150 Ml IVPB 100 mls/hr Q24H GOMEZ Administration Metronidazole 500 mg in 100 mls @ 100 mls/hr 10/25/23 20:00 10/26/23 09:30 Flagyl 500 Mg/Iso Soln 100 Ml IVPB 100 mls/hr Q6H GOMEZ Administration Lorazepam 0.5 mg 10/26/23 11:57 10/26/23 13:31 Lorazepam (*Crx) 0.5 Mg Tablet PO 0.5 mg Q6H PRN Administration Anxiety Mirabegron 50 mg 10/26/23 21:00 Mirabegron 50 Mg Er Tablet PO HS GOMEZ Pantoprazole Sodium 40 mg 10/26/23 21:00 Pantoprazole 40 Mg Tablet PO HS GOMEZ Sodium Hypochlorite 1 applic 10/25/23 21:00 10/26/23 10:31 Sod Hypochlorite 1/4 Strength 473 Ml TOPICAL 1 applic Q12HR GOMEZ Administration Radiology Results: ITS Impressions Pelvis CT 10/26/23 10:10 IMPRESSION: 1. No evidence of osteomyelitis. 2. Multiple contiguous masses in the pelvis around the uterus that are indeterminate for contrast enhancement, new from 11/04/2021. These findings may be peritoneal inclusion cysts or less likely malignancy. CT-guided biopsy is recommended. Labs Labs: Laboratory Results - last 24 hr 10/25/23 10/26/23 23:21 06:36 WBC 6.8 RBC 4.07 L Hgb 9.2 L Hct 32.4 L MCV 79.6 L MCH 22.6 L MCHC 28.4 L RDW 16.4 H Plt Count 451 H MPV 10.3 Immature Gran % (Auto) 0.4 Neut % (Auto) 75.2 H Lymph % (Auto) 15.6 L Pike % (Auto) 6.5 Eos % (Auto) 1.6 Baso % (Auto) 0.7 Lymph # (Auto) 1.06 Pike # (Auto) 0.4 Eos # (Auto) 0.1 Baso # (Auto) 0.1 Abs Immat Gran (auto) 0.03 Absolute Neuts (auto) 5.1 Absolute Nucleated RBC 0.0 Nucleated RBC % 0.0 Platelet Estimate Increased Hypochromasia 2+ Anisocytosis 1+ Schistocytes None seen Sodium 136 L Potassium 3.4 Chloride 100 Carbon Dioxide 28 Anion Gap 8 BUN 6 L D Creatinine 0.50 L Estim Creat Clear Calc
[2023-10-26] MEDS: MAG HYDROX/AL HYDROX/SIMETH 30 ML UDC PO (17:24)
[2023-10-26 20:12] VITALS: BP 109/63; PULSE 101; RESP 20; TEMP 37.2; O2SAT 93
--- NOTE | 2023-10-26 20:46 | PC.NURSE ---
Pt anxious, tearful and very fearful of multiple scans this AM. Reassured pt, who continued to cry. Pt apologetic for teariness; she stated she did not sleep well since roommate was visually hallucinating all night. Provider to bedside, dressing change done with provider. Provider ordering ativan. Pt moved to 310. Surgery working with [place] [facility] to possibly transfer patient. Needing MRI, but pt has SUPERVISOR ELECTRIC MOTOR TESTING shunt placed 1983 and revised (unknown specifics). Requested information from [facility] and [facility] [phone]. Pt feeling epigastric discomfort; states related to not receiving protonix last night. Called provider and received order for maalox. Rechecked pt who void
--- NOTE | 2023-10-26 21:15 | PC.NURSE ---
Went to administer meds/assess this AM. Found pt extremely tearful, anxious and fearful over scans. Pt returned from scans late; IV abx started late due to test. Pt voiced no sleep r/t neighbor pt having hallucinations all night. Provider to bedside, dressing changed and wound measured. Provider ordering ativan for anxiety. Requested for pt to get a new room. Pt much more comfortable. Surgery talking with [facility] regarding possible transfer for higher level of care. [facility] requesting MRI, but pt has CERAMICS ARTIST shunt placed at at [facility] and revised [id number] at [facility]. REquested pt information from each facility. Pt c/o epigastric pain r/t not receiving protonix last night. Called provider and requested maalox. Pt states resolution of discomfort. Pt appreciative of cares and voices understanding of current plan of care.
[2023-10-26] MEDS: PANTOPRAZOLE 40 MG TABLET PO (22:06)
[2023-10-26] MEDS: MIRABEGRON 50 MG ER TABLET PO (22:06)
[2023-10-27 01:50] VITALS: PULSE 94; RESP 20; O2SAT 94
[2023-10-27] MEDS: HYDROmorphone HCL INJ (*CRX) 1 MG/ML SYR 0.5 MG IV PUSH (01:53)
[2023-10-27 05:02] VITALS: BP 98/60; PULSE 92; RESP 18; TEMP 36.4; O2SAT 96
[2023-10-27] MEDS: metroNIDAZOLE 500 MG/ISO 100ML 500 MG/100 ML BAG 100 MG IVPB ×4 (07:20→23:17)
[2023-10-27] MEDS: ENOXAPARIN 40 MG/0.4 ML SYRINGE SUB-Q (08:20)
[2023-10-27] MEDS: SOD HYPOCHLORITE 1/4 STRENGTH 473 ML 1 APPLIC TOPICAL ×2 (08:20→23:17)
[2023-10-27] MEDS: BISACODYL 5 MG TABLET EC PO (08:28)
[2023-10-27 09:00] VITALS: O2SAT 96
--- NOTE | 2023-10-27 12:08 | PM.PNGS ---
Progress Note: A&P Assessment and Plan (1) Sacral decubitus ulcer: Code(s): L89.159 - Pressure ulcer of sacral region, unspecified stage Status: Acute Assessment and Plan: MRI pending as radiology needs records on patient's CENTRAL OFFICE EQUIPMENT INSTALLER shunt. After calling [facility], this could take up to a week. I reviewed the pelvis CT with the Radiologist who states the skin defect is contiguous with the myelomeningocele, and he does not feel that a lumbar MRI or CT would provide any additional information. We would recommend transfer to a tertiary care facility that would have neurosurgery available for debridement due to the proximity of the wound near the myelomeningocele, which was discussed with the Hospitalist. Will continue local wound care with Dakin's dressing changes. (2) Spina bifida of lumbar spine: Code(s): Q05.7 - Lumbar spina bifida without hydrocephalus Status: Acute Plan I have discussed the patient's case and plan of care with Dr. Frey. Subjective Subjective Date/Time Seen: 10/27/23 12:08 Patient reports: no new complaints and afebrile Interval history: Patient with no new complaints overnight. Spoke with nursing, no records from [facility] or [facility] this morning. I Had nursing call the medical records at both facilities and [facility] was able to fax operative noted, but they did not have any notes from her shunt revision. They called [facility] medical records, who states it could take up to 1 week to get these records. Review of Systems Review of Systems: All systems reviewed & are unremarkable except as noted in HPI and below Exam Const: General: comfortable and no acute distress Back/Spine/Pelvis: Other: Necrotic unstageable sacral ulcer with foul odor Objective Data Vital Signs Vital Signs: Vital Signs - 24 hr 10/26/23 14:00 10/26/23 20:12 10/27/23 01:50 Temperature 99.3 F 99 F Pulse Rate 104 H 101 H 94 Respiratory Rate 18 20 20 Blood Pressure 111/74 109/63 Pulse Oximetry 94 93 94 Oxygen Delivery Autopap 10/26/23 20:00 10/27/23 05:02 Temperature 97.5 F L Pulse Rate 92 Respiratory Rate 18 Blood Pressure 98/60 L Pulse Oximetry 96 Oxygen Delivery Room Air Intake/Output Intake/Output: Intake & Output 0110/25/23 10/26/23 10/27/23 23:59 23:59 23:59 23:59 Intake Total 350 1290 340 Output Total 200 600 650 Balance 150 690 -310 Meds/Results Medications: Active Medications Generic Name Dose Route Start Last Admin Trade Name Freq PRN Reason Stop Dose Admin Al Hydrox/Mg Hydrox/Simethicone 30 ml 10/26/23 16:00 10/26/23 17:24 Mag Hydrox/Al Hydrox/Simeth 30 Ml Udc PO 30 ml Q6H PRN Administration Indigestion Bisacodyl 5 mg 10/26/23 09:57 10/27/23 08:28 Bisacodyl 5 Mg Tablet Ec PO 5 mg QAM PRN Administration Constipation Enoxaparin Sodium 40 mg 10/26/23 09:00 10/27/23 08:20 Enoxaparin 40 Mg/0.4 Ml Syringe SUB-Q 40 mg DAILY GOMEZ Administration Hydromorphone HCl 0.5 mg 10/25/23 21:06 10/27/23 01:53 Hydromorphone Hcl Inj (*Crx) 1 Mg/Ml Syr IV PUSH 0.5 mg Q3H PRN Administration Pain Rated 7-10 Levofloxacin/Dextrose 750 mg in 150 mls @ 100 mls/hr 10/26/23 13:00 10/26/23 15:01 Levaquin 750 Mg/D5w 150 Ml IVPB Infused Q24H GOMEZ Infusion Metronidazole 500 mg in 100 mls @ 100 mls/hr 10/25/23 20:00 10/27/23 07:20 Flagyl 500 Mg/Iso Soln 100 Ml IVPB 100 mls/hr Q6H GOMEZ Administration Lorazepam 0.5 mg 10/26/23 11:57 10/26/23 13:31 Lorazepam (*Crx) 0.5 Mg Tablet PO 0.5 mg Q6H PRN Administration Anxiety Mirabegron 50 mg 10/26/23 21:00 10/26/23 22:06 Mirabegron 50 Mg Er Tablet PO 50 mg HS GOMEZ Administration Pantoprazole Sodium 40 mg 10/26/23 21:00 10/26/23 22:06 Pantoprazole 40 Mg Tablet PO 40 mg HS GOMEZ Administration Sodium Hypochlorite 1 applic 10/25/23 21:00 10/27/23 08:20 Sod Hypochlorite 09/29 [place]
[2023-10-27] MEDS: levoFLOXacin 750 MG/D5W 150 ML 750 MG/150 ML BAG 100 MG IVPB (13:44)
[2023-10-27 13:53] VITALS: BP 97/63; PULSE 93; RESP 17; TEMP 37.1; O2SAT 97
--- NOTE | 2023-10-27 15:07 | PM.IMPN ---
Progress Note: A&P Assessment and Plan (1) Sacral decubitus ulcer: Code(s): L89.159 - Pressure ulcer of sacral region, unspecified stage Status: Acute Assessment and Plan: Surgery consulted as wound will likely need to be debrided. Continue levofloxacin and metronidazole per antibiotic stewardship recommendations. -pending transfer to [facility] -pt may eat regular food in the daytime, then NPO nightly until surgical plan has been identified -continue wound care (2) Pelvic mass: Code(s): R19.00 - Intra-abdominal and pelvic swelling, mass and lump, unspecified site Status: Acute Assessment and Plan: CT scan shows multiple contiguous masses in the pelvis or in the uterus. Pelvis CT with and without contrast ordered for further evaluation. (3) Iron deficiency anemia: Code(s): D50.9 - Iron deficiency anemia, unspecified Status: Acute Assessment and Plan: Recent EGD showed reflux esophagitis. Continue pantoprazole. Receives iron infusions per Dr. Garcia. (4) Obstructive sleep apnea: Code(s): G47.33 - Obstructive sleep apnea (adult) (pediatric) Status: Acute Assessment and Plan: CPAP will be provided for the patient to use while hospitalized. Subjective Date/time seen: 10/27/23 15:07 Interval history: HPI: 38-year-old female with PMHx: Spinal bifida, iron and B12 deficiency, reflux esophagitis, and obstructive sleep apnea who presented to the emergency department for evaluation of a wound on her tailbone. Patient reported she has a history of wounds, that has been managed by her and PCP with [id number] antibiotic ointment. Ms Causey stated over last several weeks she has developed some pain in her tailbone and the last couple of days she has noticed a foul older coming from a wound over the sacrum. while participating in physical therapy, she requested staff take a look at her wound, she reports that when she was told to go to the ED for further evaluation and treatment. ED workup revealed, she was afebrile with stable vitals. WBC count was 9.6. CT of the pelvis showed no evidence of osteomyelitis but did note multiple masses in the pelvis around the uterus (new from October 2021) which may be peritoneal inclusion cyst or less likely malignancy. She was started on antibiotics, admitted for further treatment and surgery consultation. Assumed care for patient 10/26/2023 Interval history: 10/26/2023. pt seen this a.m, laying in bed, with no overnight c/o, RN and surgery team are by the bedside, new CT results are discussed with patient, plan is to consult with [facility] neurosurgery team for further recommendations, surgical debridement on hold at this moment will continue patient on clear liquid diet. 10/27/2023: pt seen this am, she reports being able to rest comfortably last night,denies any sob, chest pain, n/v.reports ongoing constipation, plan is to transfer pt to outside facility for further management of sacral ulcer, will discuss with gen surgery. 2nd visit, 1800, discussed plan with dr. Frey, spoke with neuro surgery at [facility], who has agreed to be consulted by [facility] general surgery if pt is accepted, images have been pushed to [place], Transfer center currently working to present case, will continue to process transfer in the am, pt is stable, continue plan. Exam Narrative: General: Well-developed, nontoxic-appearing female sitting up in bed. HEENT: PERRL, EOMI. Sclera anicteric. Oral mucosa moist. Neck: Supple. Respiratory: Lungs are clear to auscultation bilaterally. Cardiovascular: Regular rate and rhythm with S1-S2. Gastrointestinal: Abdomen is soft, nontender, and nondistended with positive bowel sounds. Skin: all other skin WNL, sacrum. Deep necrotic wound with foul older overlying the sacrum at the lower end of a surgical scar. Extremities: No cyanosis, clubbing, or significant edema. Short lower extremities. Radial and pedal
[2023-10-27 21:16] VITALS: BP 114/76; PULSE 100; RESP 18; TEMP 36.1; O2SAT 95
[2023-10-27 23:15] VITALS: O2SAT 95
[2023-10-27] MEDS: PANTOPRAZOLE 40 MG TABLET PO (23:16)
[2023-10-27] MEDS: MIRABEGRON 50 MG ER TABLET PO (23:16)
[2023-10-27] MEDS: polyethylene glycoL 3350 238 GM BOTTLE PO (23:45)
[2023-10-28] MEDS: metroNIDAZOLE 500 MG/ISO 100ML 500 MG/100 ML BAG 100 MG IVPB ×4 (05:43→23:19)
[2023-10-28 06:19] VITALS: BP 104/75; PULSE 104; RESP 16; TEMP 36.4; O2SAT 90
[2023-10-28 07:20] LABS: Basophils Absolute Auto 0.1 K/mm3 (0.0-0.1); Basophils Percent Auto 0.6 % (0.2-1.2); Eosinophils Absolute Auto 0.1 K/mm3 (0-0.3); Eosinophils Percent Auto 1.7 % (0-4.4); Hematocrit 33.8 % (37.0-47.0); Hemoglobin 9.7 g/dL (12.0-15.0); Immature Granulocyte Absolute 0.02 K/mm3 (0.00-0.031); Immature Granulocyte Percent A 0.2 % (0-0.5); Lymphocytes Absolute Auto 1.52 K/mm3 (0.9-3.2); Mean Corpuscular HGB Conc 28.7 g/dl (32-36); Mean Corpuscular Hemoglobin 22.7 pg (26-34); Mean Corpuscular Volume 79.2 fl (80-100); Mean Platelet Volume 9.9 fl (7.4-10.4); Monocytes Absolute Auto 0.4 K/mm3 (0.1-0.6); Monocytes Percent Auto 4.7 % (2.6-8.5); Neutrophils Absolute Auto 6.3 K/mm3 (1.3-6.7); Neutrophils Percent Auto 74.8 % (45.5-73.1); Platelet Count Result 529 k/mm3 (150-375); Red Blood Count 4.27 M/mm3 (4.2-5.4); Red Cell Distribution Width 17.1 % (11.5-14.5); White Blood Count 8.4 K/mm3 (4.5-10.0)
[2023-10-28 07:48] LABS: Hypochromasia 1+ (NORMAL); Large Platelets Present; Platelet Estimate Increased (Adequate); Schistocytes None Seen (NORMAL)
[2023-10-28] MEDS: SOD HYPOCHLORITE 1/4 STRENGTH 473 ML 1 APPLIC TOPICAL ×2 (08:24→23:17)
[2023-10-28] MEDS: ENOXAPARIN 40 MG/0.4 ML SYRINGE SUB-Q (08:25)
[2023-10-28] MEDS: levoFLOXacin 750 MG/D5W 150 ML 750 MG/150 ML BAG 100 MG IVPB (11:58)
[2023-10-28 13:01] VITALS: BP 100/64; PULSE 100; RESP 16; TEMP 36.8; O2SAT 95
--- NOTE | 2023-10-28 15:03 | PM.IMPN ---
Progress Note: A&P Assessment and Plan (1) Sacral decubitus ulcer: Code(s): L89.159 - Pressure ulcer of sacral region, unspecified stage Status: Acute Assessment and Plan: Surgery consulted as wound will likely need to be debrided. Continue levofloxacin and metronidazole per antibiotic stewardship recommendations. -pending transfer to [facility] -pt may eat regular food in the daytime, then NPO nightly until surgical plan has been identified -continue wound care (2) Pelvic mass: Code(s): R19.00 - Intra-abdominal and pelvic swelling, mass and lump, unspecified site Status: Acute Assessment and Plan: CT scan shows multiple contiguous masses in the pelvis or in the uterus. Pelvis CT with and without contrast ordered for further evaluation. (3) Iron deficiency anemia: Code(s): D50.9 - Iron deficiency anemia, unspecified Status: Acute Assessment and Plan: Recent EGD showed reflux esophagitis. Continue pantoprazole. Receives iron infusions per Dr. Garcia. (4) Obstructive sleep apnea: Code(s): G47.33 - Obstructive sleep apnea (adult) (pediatric) Status: Acute Assessment and Plan: CPAP will be provided for the patient to use while hospitalized. (5) Abnormal urine color: Code(s): R39.89 - Other symptoms and signs involving the genitourinary system Status: Acute Assessment and Plan: -patient has history of self catheterization at home -urine is dark, suspect etiology of urine discoloration is from antibiotics -will recheck UA -patient has her own supplies for self catheterization we discussed patient may need assistance from staffing operations manager with catheterization while inpatient. Plan Continue home medications: VTE Prophylaxis: SCDs DIET: Regular Anticipated hospital stay: >5 days Code Status: Full code Subjective Date/time seen: 10/28/23 15:03 Interval history: HPI: 38-year-old female with PMHx: Spinal bifida, iron and B12 deficiency, reflux esophagitis, and obstructive sleep apnea who presented to the emergency department for evaluation of a wound on her tailbone. Patient reported she has a history of wounds, that has been managed by her and PCP with [id number] antibiotic ointment. Ms Causey stated over last several weeks she has developed some pain in her tailbone and the last couple of days she has noticed a foul older coming from a wound over the sacrum. while participating in physical therapy, she requested staff take a look at her wound, she reports that when she was told to go to the ED for further evaluation and treatment. ED workup revealed, she was afebrile with stable vitals. WBC count was 9.6. CT of the pelvis showed no evidence of osteomyelitis but did note multiple masses in the pelvis around the uterus (new from October 2021) which may be peritoneal inclusion cyst or less likely malignancy. She was started on antibiotics, admitted for further treatment and surgery consultation. Assumed care for patient 10/26/2023 Interval history: 10/26/2023. pt seen this a.m, laying in bed, with no overnight c/o, RN and surgery team are by the bedside, new CT results are discussed with patient, plan is to consult with [facility] neurosurgery team for further recommendations, surgical debridement on hold at this moment will continue patient on clear liquid diet. 10/27/2023: pt seen this am, she reports being able to rest comfortably last night,denies any sob, chest pain, n/v.reports ongoing constipation, plan is to transfer pt to outside facility for further management of sacral ulcer, will discuss with gen surgery. 2nd visit, 1800, discussed plan with dr. Frey, spoke with neuro surgery at [facility], who has agreed to be consulted by [facility] general surgery if pt is accepted, images have been pushed to [facility] Transfer center currently working to present case, will continue to process transfer in the am, pt is stable, continue plan.
[2023-10-28 21:33] LABS: Appearance Urine Clear (Clear); Bacteria Urine None Seen /hpf; Bilirubin Urine Negative (Negative); Blood Urine Negative (Negative); Color Urine Dark Yellow (Yellow); Glucose Urine UA Negative (Negative); Ketones Urine Negative (Negative); Leukocyte Esterase Ur Trace LEU/UL (Negative); Nitrate Urine Negative (Negative); Non Pathogenic Casts 0-2; Protein Urine Negative (Negative); RBC Urine 0-2 /hpf (0-2); Specific Grav Ur 1.014 (1.001-1.035); Squamous Epithelial Cell Urine Occasional /hpf (Few); WBC Urine 0-5 /hpf; pH Urine 6.5 (5.0-9.0)
[2023-10-28 21:36] LABS: Add Urine Microscopic? YES
[2023-10-28 21:40] VITALS: BP 104/72; PULSE 101; RESP 14; TEMP 36.6; O2SAT 97
[2023-10-28] MEDS: PANTOPRAZOLE 40 MG TABLET PO (23:16)
[2023-10-28] MEDS: MIRABEGRON 50 MG ER TABLET PO (23:17)
[2023-10-29] MEDS: metroNIDAZOLE 500 MG/ISO 100ML 500 MG/100 ML BAG 100 MG IVPB ×2 (05:43→10:58)
[2023-10-29 06:00] VITALS: BP 110/62; PULSE 97; RESP 16; TEMP 36.4; O2SAT 94
[2023-10-29 07:18] LABS: Basophils Absolute Auto 0.1 K/mm3 (0.0-0.1); Basophils Percent Auto 0.8 % (0.2-1.2); Eosinophils Absolute Auto 0.2 K/mm3 (0-0.3); Eosinophils Percent Auto 3.4 % (0-4.4); Hematocrit 31.6 % (37.0-47.0); Immature Granulocyte Absolute 0.02 K/mm3 (0.00-0.031); Immature Granulocyte Percent A 0.3 % (0-0.5); Lymphocytes Absolute Auto 1.19 K/mm3 (0.9-3.2); Lymphocytes Percent Auto 18.4 % (18.3-44.2); Mean Corpuscular HGB Conc 28.5 g/dl (32-36); Mean Corpuscular Hemoglobin 22.7 pg (26-34); Mean Corpuscular Volume 79.6 fl (80-100); Mean Platelet Volume 9.8 fl (7.4-10.4); Monocytes Absolute Auto 0.4 K/mm3 (0.1-0.6); Monocytes Percent Auto 6.6 % (2.6-8.5); Neutrophils Absolute Auto 4.6 K/mm3 (1.3-6.7); Neutrophils Percent Auto 70.5 % (45.5-73.1); Platelet Count Result 475 k/mm3 (150-375); Red Blood Count 3.97 M/mm3 (4.2-5.4); Red Cell Distribution Width 16.9 % (11.5-14.5); White Blood Count 6.5 K/mm3 (4.5-10.0)
[2023-10-29] MEDS: SOD HYPOCHLORITE 1/4 STRENGTH 473 ML 1 APPLIC TOPICAL (08:27)
[2023-10-29 08:43] LABS: Anisocytosis 1+ (NORMAL); Hypochromasia 1+ (NORMAL); Platelet Estimate Adequate (Adequate); Schistocytes None Seen (NORMAL)
[2023-10-29 08:51] VITALS: O2SAT 95
[2023-10-29] MEDS: levoFLOXacin 750 MG/D5W 150 ML 750 MG/150 ML BAG 100 MG IVPB (11:57)
[2023-10-29] MEDS: LORazepam (*CRX) 0.5 MG TABLET PO (12:44)
--- NOTE | 2023-10-29 12:45 | PM.IMPN ---
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 10/28/2023 follow up call around 1300, transfer center reports they are still attempting contact with general surgeon - Transfer liasion calls at 10/28/2023 @ 1800 with [facility] General surgery, who declined on 10/28/2023, reported that she would not be able to perform surgery based on the current images she has access to, explained to Surgeon pt was not able to have MRI at this facility -spoke with [facility] at 1215, unable to accept pt due bed availability, they suggests [facility] in [facility] or [facility] - call to [facility] at 1230, waiting for Surgeon to call back Subjective Date/time seen: 10/29/23 12:45 Objective Data Vital Signs Vital Signs: Vital Signs - 24 hr 10/28/23 13:01 10/28/23 21:40 10/29/23 06:00 Temperature 98.3 F 97.8 F 97.5 F L Pulse Rate 100 101 H 97 Respiratory Rate 16 14 16 Blood Pressure 100/64 104/72 110/62 Pulse Oximetry 95 97 94 Oxygen Delivery Fraction of Inspired Oxygen 10/29/23 08:51 10/29/23 08:00 Temperature Pulse Rate Respiratory Rate Blood Pressure Pulse Oximetry 95 Oxygen Delivery Room Air Room Air Fraction of Inspired Oxygen 21 Intake/Output Intake/Output: Intake & Output 10/26/23 10/27/23 10/28/23 10/29/23 23:59 23:59 23:59 23:59 Intake Total 1290 1820 1150 537 Output Total 410 070 4963 400 Balance 690 870 80 137 Meds/Results Medications: Active Medications Generic Name Dose Route Start Last Admin Trade Name Freq PRN Reason Stop Dose Admin Al Hydrox/Mg Hydrox/Simethicone 30 ml 10/26/23 16:00 10/26/23 17:24 Mag Hydrox/Al Hydrox/Simeth 30 Ml Udc PO 30 ml Q6H PRN Administration Indigestion Bisacodyl 5 mg 10/26/23 09:57 10/27/23 08:28 Bisacodyl 5 Mg Tablet Ec PO 5 mg QAM PRN Administration Constipation Enoxaparin Sodium 40 mg 10/26/23 09:00 10/29/23 08:27 Enoxaparin 40 Mg/0.4 Ml Syringe SUB-Q Not Given DAILY GOMEZ Hydromorphone HCl 0.5 mg 10/25/23 21:06 10/27/23 01:53 Hydromorphone Hcl Inj (*Crx) 1 Mg/Ml Syr IV PUSH 0.5 mg Q3H PRN Administration Pain Rated 7-10 Levofloxacin/Dextrose 750 mg in 150 mls @ 100 mls/hr 10/26/23 13:00 10/29/23 11:57 Levaquin 750 Mg/D5w 150 Ml IVPB 100 mls/hr Q24H GOMEZ Administration Metronidazole 500 mg in 100 mls @ 100 mls/hr 10/25/23 20:00 10/29/23 11:58 Flagyl 500 Mg/Iso Soln 100 Ml IVPB Infused Q6H GOMEZ Infusion Lorazepam 0.5 mg 10/26/23 11:57 10/29/23 12:44 Lorazepam (*Crx) 0.5 Mg Tablet PO 0.5 mg Q6H PRN Administration Anxiety Mirabegron 50 mg 10/26/23 21:00 10/28/23 23:17 Mirabegron 50 Mg Er Tablet PO 50 mg HS GOMEZ Administration Pantoprazole Sodium 40 mg 10/26/23 21:00 10/28/23 23:16 Pantoprazole 40 Mg Tablet PO 40 mg HS GOMEZ Administration Sodium Hypochlorite 1 applic 10/25/23 21:00 10/29/23 08:27 Sod Hypochlorite 1/4 Strength 473 Ml TOPICAL 1 applic Q12HR GOMEZ Administration Radiology Results: ITS Impressions Pelvis CT 10/26/23 10:10 IMPRESSION: 1. No evidence of osteomyelitis. 2. Multiple contiguous masses in the pelvis around the uterus that are indeterminate for contrast enhancement, new from 11/04/2021. These findings may be peritoneal inclusion cysts or less likely malignancy. CT-guided biopsy is recommended. Labs Labs: Laboratory Results - last 24 hr 10/28/23 10/29/23 21:16 06:29 WBC 6.5 RBC 3.97 L Hgb 9.0 L Hct 31.6 L MCV 79.6 L MCH 22.7 L MCHC 28.5 L RDW 16.9 H Plt Count 475 H MPV 9.8 Immature Gran % (Auto) 0.3 Neut % (Auto) 70.5 Lymph % (Auto)
[2023-10-29 14:00] VITALS: BP 127/89; PULSE 99; RESP 22; TEMP 36.5; O2SAT 98
--- NOTE | 2023-10-29 14:30 | PC.NURSE ---
Addendum entered by Radha Pena RN 10/29/23 14:33: Phone number to reach nurses station to call for report is as provided: [phone] Original Note: Received word from transfer center that patient has been accepted at [facility] into room #[id number] Eagle. Patient updated on this and plans to update family with plans to transfer. Caroline MARX notified and plans to come update patient as well. Pt. updating family now and this nurse will continue with processing the transfer when patient finishes updating family and speaks to Caroline.
--- NOTE | 2023-10-29 15:54 | PM.TDS ---
Transfer Discharge Sum: Prov Provider Date of admission: 10/26/23 11:06 Primary care physician: Catalina Dorado, Admitting clinician: Derrek Moser MD Consults: 10/25/23 Consult to Physician Routine Comment: Consulting Provider: Juan Luis Frey Reason for consultation: sacral wound Has provider been notified: Yes Attending physician on discharge: Caroline Bourne Discharging clinician: Caroline Bourne Receiving physician/facility: [facility] DS: Admitting Diagnosis Discharge Date 10/29/2023 Admitting Diagnosis Pressure ulcer of sacral region DS: Discharge Diagnosis Discharge Diagnosis (1) Abnormal urine color: Code(s): R39.89 - Other symptoms and signs involving the genitourinary system Status: Acute Assessment and Plan: -patient has history of self catheterization -urine recheck urine unremarkable -reflux to culture if not met (2) Sacral decubitus ulcer: Code(s): L89.159 - Pressure ulcer of sacral region, unspecified stage Status: Acute Assessment and Plan: -patient seen by General surgery plan recommendations below Patient presents with an unstageable necrotic sacral ulcer at the lower end of her scarring from previous surgeries for spina bifida. Pelvis CT showed no evidence of osteomyelitis. Considering the location, it would be high risk to proceed with surgical debridement. We will initiate local wound care with Dakin's soaked gauze dressing changes. We will continue to follow along and would recommend a referral to a spina bifida specialist. (3) Pelvic mass: Code(s): R19.00 - Intra-abdominal and pelvic swelling, mass and lump, unspecified site Status: Acute Assessment and Plan: Incidental finding CT scan shows multiple contiguous masses in the pelvis or in the uterus. (4) Spina bifida of lumbar spine: Code(s): Q05.7 - Lumbar spina bifida without hydrocephalus Status: Chronic Assessment and Plan: -continue to monitor and follow up outpatient -patient very concerned and would like to be established at spina bifida Clinic at [facility] once released from hospital s/p: Wound debridement (5) PAYAL (obstructive sleep apnea): Code(s): G47.33 - Obstructive sleep apnea (adult) (pediatric) Status: Acute Assessment and Plan: -patient is compliant with CPAP Transfer Discharge Sum: Med Medications Active and Home Medications: Home Medications pantoprazole 40 mg tablet,delayed release 40 mg PO HS 07/11/19 [History Confirmed 10/25/23] mirabegron 50 mg tablet,extended release 24 hr (Myrbetriq) 50 mg PO HS 03/19/20 [History Confirmed 10/25/23] Active Medications Al Hydrox/Mg Hydrox/Simethicone (Mag Hydrox/Al Hydrox/Simeth 30 Ml Udc) 30 ml PO Q6H PRN PRN Reason: Indigestion Last Admin: 10/26/23 17:24 Dose: 30 ml Bisacodyl (Bisacodyl 5 Mg Tablet Ec) 5 mg PO QAM PRN PRN Reason: Constipation Last Admin: 10/27/23 08:28 Dose: 5 mg Enoxaparin Sodium (Enoxaparin 40 Mg/0.4 Ml Syringe) 40 mg SUB-Q DAILY [facility] Last Admin: 10/29/23 08:27 Dose: Not Given Hydromorphone HCl (Hydromorphone Hcl Inj (*Crx) 1 Mg/Ml Syr) 0.5 mg IV PUSH Q3H PRN PRN Reason: Pain Rated 7-10 Last Admin: 10/27/23 01:53 Dose: 0.5 mg Levofloxacin/Dextrose (Levaquin 750 Mg/D5w 150 Ml) 750 mg in 150 mls @ 100 mls/hr IVPB Q24H [facility] Last Infusion: 10/29/23 13:27 Dose: Infused Metronidazole (Flagyl 500 Mg/Iso Soln 100 Ml) 500 mg in 100 mls @ 100 mls/hr IVPB Q6H [facility] Last Infusion: 10/29/23 11:58 Dose: Infused Lorazepam (Lorazepam (*Crx) 0.5 Mg Tablet) 0.5 mg PO Q6H PRN PRN Reason: Anxiety Last Admin: 10/29/23 12:44 Dose: 0.5 mg Mirabegron (Mirabegron 50 Mg Er Tablet) 50 mg PO [facility] Last Admin: 10/28/23 23:17 Dose: 50 mg Pantoprazole Sodium (Pantoprazole 40 Mg Tablet) 40 mg PO [facility] Last Admin: 10/28/23 23:16 Dose: 40 mg Sodium Hypochlorite (Sod Hypochlorite 1/4 Strength 473 Ml) 1 applic TOPIC
--- NOTE | 2023-10-29 17:57 | PC.NURSE ---
Pt. on track to transfer to [facility]. Report called to Ulises RAJAN. [facility] called and ETA was given for 17:45. Pt. updated on plan of care.
== END 2023-10-29 18:28 | disposition short-term general hospital (02) | DRG 594 ==
LOC: ANHED 12:13 → ANH3MEDSUR 18:18
PROVIDERS: Physician Assistant; Admitting Provider Family Medicine; Emergency Provider Emergency Medicine; PCP Family Medicine; Visit Provider Nurse Practitioner
DX: L89.150 Pressure ulcer of sacral region, unstageable (principal); Q05.9 Spina bifida, unspecified; D50.9 Iron deficiency anemia, unspecified; E53.8 Deficiency of other specified B group vitamins; K21.00 Gastro-esophageal reflux disease with esophagitis, without bleeding; R19.00 Intra-abdominal and pelvic swelling, mass and lump, unspecified site; G47.33 Obstructive sleep apnea (adult) (pediatric); F41.9 Anxiety disorder, unspecified; F32.A Depression, unspecified; Z98.2 Presence of cerebrospinal fluid drainage device
CPT/HCPCS: 36415; 72193; 72194; 80048; 80053; 81001; 83605; 83735; 85025; 85610; 85730; 87040; 87070; 87086; 87205; 96365; 96368; 96375; 97116; 97161; 99285; A9270; G0378; J1170; J1650; J1836; J1956; Q9967

== ENCOUNTER 2023-12-01 16:35 | Emergency (ER) | payer MEDICARE, MEDICAID, SELFPAY ==
--- NOTE | ~2023-12-01 | XR_ITS ---
EXAMINATION: XR chest 2V DATE: 12/01/2023 18:25 INDICATION: Fever. Sepsis. TECHNIQUE: Frontal and lateral views of the chest were obtained. COMPARISON: Chest 2 views 08/23/23 FINDINGS: There is no pneumonia, pleural effusion, or pneumothorax. The heart is normal. There is a l arge hiatal hernia. There is mild chronic anterior wedging of multiple vertebral bodies. There is a v entriculoperitoneal shunt on the right. IMPRESSION: 1. Large hiatal hernia. Reviewed, dictated and finalized at location E. UNICATIONS SUPERINTENDENT IMPRESSION: 1. Large hiatal hernia.
[2023-12-01 17:43] VITALS: BP 133/78; PULSE 137; RESP 18; TEMP 38.3; O2SAT 100
--- NOTE | 2023-12-01 17:54 | ED.WOUNDLAC ---
HPI - Wound/Laceration General Chief Complaint: Fever <Az Isidro APRN - Last Filed: 12/01/23 17:59> Stated Complaint: FEVER,WOUND <Az Isidro APRN - Last Filed: 12/01/23 17:59> Time Seen by Provider: 12/01/23 17:50 <Az Isidro APRN - Last Filed: 12/01/23 17:59> Focused HPI: Karely is a 38-year-old female patient presenting to the ER today with complaints of a wound to her coccyx. She reports her home health nurse discontinued her PICC line to her right upper arm today. She developed fever of 102 this afternoon that prompted her to come into the ER today. She does have an open wound over her coccyx. History of spina bifida. Patient does self cath herself and reports that her urine has been very dark GENERAL: Well-appearing, well-nourished, and in no acute distress. HEAD: Normocephalic, atraumatic. CHEST: Clear to auscultation. No respiratory distress. HEART: Regular rate and rhythm. NEURO: Alert and oriented x3 Integumentary: [place], warm, and dry, open wound to the coccyx, no redness or erythema over PICC line site. Patient screened in triage and initial orders placed. Additional care and disposition to be based upon diagnostic testing and treatment. <Az Isidro APRN - Last Filed: 12/01/23 17:59> Source: patient <Az Isidro APRN - Last Filed: 12/01/23 17:59> Mode of arrival: ambulatory <Az Isidro APRN - Last Filed: 12/01/23 17:59> Limitations: no limitations <Az Isidro APRN - Last Filed: 12/01/23 17:59> History of Present Illness HPI narrative: 38-year-old female with history of spina bifida and GERD presents to emergency department for fever of 102 at home. Patient was admitted to our hospital on 10/25/2023 for a infected sacral wound. CT at that time showed no evidence of osteomyelitis. Patient was transferred to [facility] for wound care. States she did not have debridement performed. Reports she was sent home on 11/08/2023 from [facility] with a PICC line in place and home health care. She was treated with daptomycin daily. She had a culture of her wound drawn by Infectious Disease 3 days ago and had results back today which were negative. Home health came to her house today to remove her PICC line. After removing the PICC line, the the patient developed a fever of 102. She came to the ER for further evaluation. States she has been caring for wound with Santyl cream and packing it 2 times per day. States it is significantly improved and is nontender, not draining. She denies chest pain or shortness of breath, abdominal pain, nausea, vomiting or diarrhea, dysuria hematuria. She does state her urine looks dark and has looked dark for many months. States she feels fine and wants to go home. She has not taken anything for her fever. <Becca Preciado PA-C - Last Filed: 12/02/23 03:20> Related Data Home Medications: Home Medications Medication Instructions Recorded Confirmed pantoprazole 40 mg tablet,delayed 40 mg PO HS 07/11/19 10/25/23 release mirabegron 50 mg tablet,extended 50 mg PO HS 03/19/20 10/25/23 release 24 hr (Myrbetriq) <Az Isidro APRN - Last Filed: 12/01/23 17:59> Allergies/Adverse Reactions: Allergies Allergy/AdvReac Type Severity Reaction Status Date / Time amoxicillin Allergy Mild Rash Verified 10/25/23 19:07 latex Allergy Unknown Anaphylaxis Verified 10/25/23 19:07 <Az Isidro APRN - Last Filed: 12/01/23 17:59> Review of Systems Review of Systems: CONSTITUTIONAL: See HPI EYES: Denies visual changes, redness, or discharge. ENT: Denies rhinorrhea, congestion, sore throat, or otalgia. CARDIOVASCULAR: Denies chest pain, palpitations, or edema. RESPIRATORY: Denies cough or dyspnea. GASTROINTESTINAL: Denies abdominal pain, nausea, vomiting, or diarrhea. GENITOURINARY: Denies dysuria or hematuria. SKIN: Denies rash or itching. MUSCULOSKELETAL: Denies b
[2023-12-01 18:17] LABS: Basophils Absolute Auto 0.1 K/mm3 (0.0-0.1); Basophils Percent Auto 0.7 % (0.2-1.2); Eosinophils Percent Auto 0.2 % (0-4.4); Hematocrit 38.2 % (37.0-47.0); Immature Granulocyte Absolute 0.02 K/mm3 (0.00-0.031); Immature Granulocyte Percent A 0.2 % (0-0.5); Lymphocytes Absolute Auto 0.77 K/mm3 (0.9-3.2); Lymphocytes Percent Auto 9.2 % (18.3-44.2); Mean Corpuscular HGB Conc 28.8 g/dl (32-36); Mean Corpuscular Volume 76.4 fl (80-100); Mean Platelet Volume 9.7 fl (7.4-10.4); Monocytes Absolute Auto 0.6 K/mm3 (0.1-0.6); Monocytes Percent Auto 6.9 % (2.6-8.5); Neutrophils Absolute Auto 6.9 K/mm3 (1.3-6.7); Neutrophils Percent Auto 82.8 % (45.5-73.1); Platelet Count Result 552 k/mm3 (150-375); Red Cell Distribution Width 17.8 % (11.5-14.5); White Blood Count 8.4 K/mm3 (4.5-10.0)
[2023-12-01 18:43] LABS: Anisocytosis 1+ (NORMAL); Hypochromasia 1+ (NORMAL); Large Platelets Present; Schistocytes None Seen (NORMAL)
[2023-12-01 18:52] LABS: INR 1.2; Prothrombin Time 15.9 Seconds (11.1-14.7)
[2023-12-01 18:55] LABS: Partial Thromboplastin Time 35.5 SECONDS (22.3-36.8)
[2023-12-01 19:01] LABS: Alanine Aminotransferase 12 U/L (6-35); Albumin Level 3.8 g/dL (3.5-5.1); Alkaline Phosphatase 104 U/L (38-126); Anion Gap 7 mmol/L (8-16); Aspartate Amino Transferase 29 U/L (14-36); Bilirubin,Total 0.6 mg/dL (0.2-1.3); Blood Urea Nitrogen 15 mg/dL (7-17); CRP 20.5 mg/dL (<1.0); Calcium 9.8 mg/dL (8.4-10.2); Carbon Dioxide 31 mmol/L (22-30); Chloride 99 mmol/L (98-107); Estimated Glomerular Filt Rate > 60; Glucose 128 mg/dL (65-110); Potassium 3.7 mmol/L (3.4-5.0); Sodium 137 mmol/L (137-145)
[2023-12-01 20:41] VITALS: BP 130/93; PULSE 130; RESP 18; TEMP 36.6; O2SAT 95
[2023-12-01 21:48] VITALS: BP 129/86; PULSE 123; RESP 14; TEMP 36.5; O2SAT 95
[2023-12-01] MEDS: PANTOPRAZOLE SODIUM IV 40 MG VIAL IV PUSH (22:03)
[2023-12-01 22:08] VITALS: TEMP 37.4
--- NOTE | 2023-12-01 23:30 | ECG_ITS ---
Measurements Intervals [facility] Rate: 127 P: 46 NH: 149 QRS: 30 QRSD: 86 T: 33 QT: 335 QTc: 488 Interpretive Statements SINUS TACHYCARDIA CONSIDER ANTERIOR INFARCT, AGE INDETERMINATE ABNORMAL ECG COMPARED TO ECG 08/23/2023 08:37:18 NO SIGNIFICANT CHANGES Electronically Signed On 12-02-2023 6:23:56 SIZE CHANGER by Spencer Suarez D.O.
--- NOTE | 2023-12-01 23:36 | ED.FEVER ---
HPI - Fever General Chief Complaint: Fever Stated Complaint: FEVER,WOUND Time Seen by Provider: 12/01/23 17:50 Source: patient Mode of arrival: ambulatory Limitations: no limitations History of Present Illness HPI Narrative: 38-year-old female with history of spina bifida and GERD presents to emergency department for fever of 102 at home. Patient was admitted to our hospital on 10/25/2023 for a infected sacral wound. CT at that time showed no evidence of osteomyelitis. Patient was transferred to [facility] Medications Medication Instructions Recorded Confirmed pantoprazole 40 mg tablet,delayed 40 mg PO HS 07/11/19 10/25/23 release mirabegron 50 mg tablet,extended 50 mg PO HS 03/19/20 10/25/23 release 24 hr (Myrbetriq) Allergies Allergy/AdvReac Type Severity Reaction Status Date / Time amoxicillin Allergy Mild Rash Verified 10/25/23 19:07 latex Allergy Unknown Anaphylaxis Verified 10/25/23 19:07 [facility] Past Medical History Medical History Anxiety Depression Iron deficiency anemia Obstructive sleep apnea Spina bifida Vitamin B12 deficiency Surgical History Surgical History History of back surgery History of cholecystectomy History of creation of ventriculoperitoneal shunt History of endoscopy History of esophagogastroduodenoscopy (08/2023) Reflux esophagitis. Hiatal hernia. Family History Family History Mother Depression Family history of multiple sclerosis Other Family history of malignant neoplasm Social History Social History (Updated 10/25/23 @ 23:27 by Cheryl Blanco PA-C) Social History: Surrogate medical decision maker: Kendal Causey, mother. Code status: Full code. Smoking status: Never smoker Alcohol intake: never Substance use: never Substance use type: does not use Do You Feel Safe in your Home?: Yes Lack of Transportation: No Lack of Food: Never True Current Housing: I Have Housing Concerned About Future Housing: No Difficulty Paying Gas/Electric Bills: No Difficulty Paying for Meds: No Currently Unemployed: No Education: Don't Know Difficulty w/ Childcare or Family Care: No Living arrangements: with family Additional living arrangements comments: Lives with mother in [place]. Ambulates with crutches an AFO braces. Electric scooter for long distances. 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 Spiritual care concerns: No Course Vital Signs Vital signs: Vital Signs Temperature 101 F H 12/01/23 17:43 Pulse Rate 137 H 12/01/23 17:43 Respiratory Rate 18 12/01/23 17:43 Blood Pressure 133/78 12/01/23 17:43 Pulse Oximetry 100 12/01/23 17:43 Oxygen Delivery Room Air 12/01/23 17:43 Temperature 99.3 F 12/01/23 22:08 Pulse Rate 123 H 12/01/23 21:48 Respiratory Rate 14 12/01/23 21:48 Blood Pressure 129/86 12/01/23 21:48 Pulse Oximetry 95 12/01/23 21:48 Oxygen Delivery Room Air 12/01/23 17:43 MDM - Fever Lab Data 12/01/23 18:10 12/01/23 18:10 Labs: Lab Results 12/01/23 Range/Units 18:10 WBC 8.4 (4.5-10.0) K/mm3 RBC 5.00 (4.2-5.4) M/mm3 Hgb 11.0 L (12.0-15.0) g/dL Hct 38.2 (37.0-47.0) % MCV 76.4 L (80-100) fl MCH 22.0 L (26-34) pg MCHC 28.8 L (32-36) g/dl RDW 17.8 H (11.5-14.5) % Plt Count 552 H (150-375) k/mm3 MPV 9.7 (7.4-10.4) fl Immature Gran % (Auto) 0.2 (0-0.5) % Neut % (Auto) 82.8 H (45.5-73.1) % Lymph % (Auto) 9.2 L (18.3-44.2) % [place] % (Auto) 6.9 (2.6-8.5) % Eos % (Auto) 0.2 (0-4.4) % Baso % (Auto) 0.7 (0.2-1.2) % Lymph # (Auto) 0.77 L (0.9-3.2) K/mm3 [place] # (Auto) 0.6 (0.1-0.6) K/mm3 Eos # (Auto) 0.0 (0-0.3) K/mm3 Baso # (Auto) 0.1 (0.0-0.1) K/mm3 Abs I
[2023-12-01] MEDS: FAMOTIDINE 20 MG/2 ML VIAL IV PUSH (23:39)
[2023-12-01] MEDS: SODIUM CHLORIDE 0.9% IV 1,000 ML 999 ML IV CONT (23:39)
[2023-12-02 00:02] VITALS: BP 131/88; PULSE 106; RESP 12; O2SAT 100
[2023-12-02 00:34] LABS: Appearance Urine Clear (Clear); Bacteria Urine None Seen /hpf; Bilirubin Urine 1+ (Negative); Blood Urine Negative (Negative); Color Urine Dark Yellow (Yellow); Glucose Urine UA Negative (Negative); Ketones Urine Trace mg/dL (Negative); Leukocyte Esterase Ur 1+ LEU/UL (Negative); Mucus Urine Present /lpf; Need Manual Microscopic Reviewed; Nitrate Urine Positive (Negative); Non Pathogenic Casts 0-2; Protein Urine 2+ mg/dL (Negative); RBC Urine 0-2 /hpf (0-2); Specific Grav Ur 1.026 (1.001-1.035); Squamous Epithelial Cell Urine None seen /hpf (Few); WBC Urine 0-5 /hpf
[2023-12-02 00:35] LABS: Add Urine Microscopic? YES
[2023-12-02 00:56] LABS: Influenza A QL RT-PCR Negative (Negative); Influenza B QL RT-PCR Negative (Negative); RSV RNA, RT-PCR Negative (Negative); SARS-CoV-2 RNA PCR Negative (Negative)
[2023-12-02 01:05] VITALS: BP 115/76; PULSE 96; RESP 15; O2SAT 95
== END 2023-12-02 01:26 | disposition home or self-care (01) ==
PROVIDERS: Nurse Practitioner Family; Emergency Provider Physician Assistant; PCP Family Medicine
DX: L89.154 Pressure ulcer of sacral region, stage 4 (principal); N30.00 Acute cystitis without hematuria; Q05.9 Spina bifida, unspecified
CPT/HCPCS: 36415; 71046; 80053; 81001; 83605; 85025; 85610; 85730; 86140; 87040; 87070; 87205; 87637; 93005; 96361; 96365; 96375; 99284; C9113; J0696; J7030